=== PATIENT | male | born 1950 | race Caucasian/White ===

== ENCOUNTER 2017-04-14 05:55 | Emergency (ER) | payer OTHER, MEDICARE | END 2017-04-14 09:06 | disposition home or self-care (01) | LOC: M ED 05:55 | DX: S80.02XA Contusion of left knee, initial encounter (principal); W19.XXXA Unspecified fall, initial encounter; Y92.009 Unspecified place in unspecified non-institutional (private) residence as the place of occurrence of the external cause; K58.9 Irritable bowel syndrome, unspecified; F17.210 Nicotine dependence, cigarettes, uncomplicated; Z79.899 Other long term (current) drug therapy | CPT/HCPCS: 73564 ==

== ENCOUNTER 2017-05-07 11:59 | Emergency (ER) | payer OTHER ==
[2017-05-07] MEDS: MORPHINE 4 MG/ML 1ML VIAL (J2270) IV ×2 (12:53→15:02)
== END 2017-05-07 15:42 | disposition home or self-care (01) ==
LOC: M ED 11:59
DX: S52.571A Other intraarticular fracture of lower end of right radius, initial encounter for closed fracture (principal); S52.614A Nondisplaced fracture of right ulna styloid process, initial encounter for closed fracture; R22.31 Localized swelling, mass and lump, right upper limb; W19.XXXA Unspecified fall, initial encounter; Y92.098 Other place in other non-institutional residence as the place of occurrence of the external cause; F17.210 Nicotine dependence, cigarettes, uncomplicated; Z79.899 Other long term (current) drug therapy
CPT/HCPCS: J2270

== ENCOUNTER 2017-11-08 22:25 | Emergency (ER) | payer OTHER ==
[2017-11-08] MEDS: NORCO, ANEXSIA 5/325MG TABLET (HYDROcodone/ACETAMINOPHEN) PO ×2 (23:44)
== END 2017-11-09 00:06 | disposition home or self-care (01) ==
LOC: M ED 11-09 00:06
DX: S93.402A Sprain of unspecified ligament of left ankle, initial encounter (principal); X50.1XXA Overexertion from prolonged static or awkward postures, initial encounter; Y92.099 Unspecified place in other non-institutional residence as the place of occurrence of the external cause; Y93.9 Activity, unspecified; Y99.9 Unspecified external cause status; J44.9 Chronic obstructive pulmonary disease, unspecified; Z72.0 Tobacco use; Z79.899 Other long term (current) drug therapy
CPT/HCPCS: 73610

== ENCOUNTER → 2018-02-20 | Outpatient (REF) | payer OTHER ==
[~2018-02-20] MED LIST: /PANT40TA IV; ACET500T15 PO; AMBI10TA PO; ATIV1TAB7 PO; BACL10TA2 PO; CLON1TAB PO; CLON1TAB8 PO; EFFE75CA2 PO; FINA1TAB PO; FINA5TAB2 PO; IBUP-1022 PO; IBUP80TA PO; LAMI25TA PO; MIRT15TA3 PO; NAPR-50 PO; NAPR-885 PO; NAPR500T2 PO; NAPROXEN OR; OMEP40CA2 PO; OXYC-208 PO; OXYC-517 PO; PAXI10TA OR; PERC5TAB12 PO; PERC5TAB8 OR; PROAAER10 INH; SIMV40TA2 PO; TERA1CA PO; TERA1CAP3 PO; TOPI25TA2 OR; TRAM50TA2 OR; VENL75CA47 PO; WELLTAB40 PO; ZOCO80TA PO; ZOLO100T PO; ZOLP-189 PO
--- NOTE | 2018-02-20 20:41 | REP ---
Clinical: Preoperative assessment . Comparison: 01/17/2015 . Technique: PA and lateral. Findings: The mediastinum and cardiac silhouette are normal. The lung tolliver are clear and without acute consolidation, effusion, or pneumothorax. The skeletal structures are intact and normal. Impression: 1. No acute cardiopulmonary process. Electronically Signed by Carrington Watson MD 02/20/2018 08:32 P
== END ==
LOC: M RAD 12:07 → EDSTATUS 04-28 10:59
PROVIDERS: ATTEND Physician Assistant
DX: Z01.818 Encounter for other preprocedural examination (principal)

== ENCOUNTER → 2018-09-25 | Outpatient (REF) | payer OTHER ==
[~2018-09-25] MED LIST changes: -/PANT40TA IV; -NAPR-50 PO; +NAPR-837 PO; +PROT1TAB2 IV; -TERA1CA PO; +TERA1CAP46 PO
== END ==
LOC: M LAB REF 13:44
PROVIDERS: ATTEND Otolaryngology
DX: D14.0 Benign neoplasm of middle ear, nasal cavity and accessory sinuses (principal); J34.2 Deviated nasal septum; R09.81 Nasal congestion

== ENCOUNTER 2019-08-20 19:35 | Inpatient (IN) | payer OTHER ==
[~2019-08-20] VITALS: Ht 182.9 cm; Wt 94.4 kg
[~2019-08-20 19:35] MED LIST changes: -OMEP40CA2 PO; +OMEP40CA97 PO
[2019-08-20] MEDS ORDERED: ASPI81TA86 PO (19:45)
[2019-08-20 20:20] LABS: BASO % 0.3 % (0.0-1.0); EOS # 0.5 10^3/uL (0.0-0.5); EOS % 3.8 % (0.0-3.0); HEMATOCRIT 49.2 % (42.0-52.0); HEMOGLOBIN 15.7 g/dl (13.5-17.5); LYMPH # 2.1 10^3/uL (1.5-5.0); LYMPH % 15.9 % (24.0-44.0); MEAN CORPUSCULAR HGB CONC 31.9 g/dl (32.0-36.5); MEAN CORPUSCULAR VOLUME 93.9 fl (80.0-96.0); MONO # 0.7 10^3/uL (0.0-0.8); MONO % 5.3 % (0.0-5.0); NEUTROPHILS # 9.6 10^3/uL (1.5-8.5); NEUTROPHILS % 74.2 % (36.0-66.0); PLATELET COUNT, AUTOMATED 279 10^3/uL (150-450); RED BLOOD COUNT 5.24 10^6/uL (4.30-6.10); WHITE BLOOD COUNT 12.9 10^3/uL (4.0-10.0)
[2019-08-20 20:43] LABS: ALBUMIN 3.8 GM/DL (3.2-5.2); ALT/SGPT 19 U/L (12-78); BILIRUBIN,DIRECT 0.2 MG/DL (0.0-0.2); BILIRUBIN,TOTAL 0.4 MG/DL (0.2-1.0); BLOOD UREA NITROGEN 14 MG/DL (7-18); CALCIUM LEVEL 8.9 MG/DL (8.8-10.2); CARBON DIOXIDE LEVEL 31 MEQ/L (21-32); CHLORIDE LEVEL 102 MEQ/L (98-107); CREATININE FOR GFR 0.82 MG/DL (0.70-1.30); GLOMERULAR FILTRATION RATE > 60.0 (>42); GLUCOSE, FASTING 128 MG/DL (70-100); POTASSIUM SERUM 4.7 MEQ/L (3.5-5.1); SODIUM LEVEL 136 MEQ/L (136-145)
[2019-08-20] MEDS ORDERED: ISOVUE-370 76% 100ML VIAL As Ordered ONE (21:30)
[2019-08-20 21:41] LABS: NT-PRO BNP 50 PG/ML (<125)
[2019-08-20] MEDS ORDERED: dexameTHASONE 20MG/5ML VIAL (J1100 PER 1MG) IV ONE (22:00)
[2019-08-20] MEDS: COMBIVENT RESPIMAT 100-20MCG INHALER 4GM INH SCH ×3 (22:17→22:44)
--- NOTE | 2019-08-20 22:58 | REPVR ---
PROCEDURE INFORMATION: Exam: CT Angiography Chest With Contrast Exam date and time: 08/20/2019 10:37 PM Age: 69 years old Clinical indication: Shortness of breath TECHNIQUE: Imaging protocol: Computed tomographic angiography of the chest with intravenous contrast. 3D rendering: MIP and/or 3D reconstructed images were created by the technologist. Radiation optimization: All CT scans at this facility use at least one of these dose optimization techniques: automated exposure control; mA and/or kV adjustment per patient size (includes targeted exams where dose is matched to clinical indication); or iterative reconstruction. Contrast material: ISOVUE 370; Contrast volume: 75 ml; Contrast route: INTRAVENOUS (IV); COMPARISON: CR PORTABLE CHEST X-RAY 2019-08-20 19:55 FINDINGS: Pulmonary arteries: No filling defects in the pulmonary arteries to suggest pulmonary emboli. Aorta: Mild aortic atherosclerosis. Lungs: Dependent subsegmental pulmonary atelectasis. Mild bronchial wall thickening with some secretions, correlate for bronchiolitis and bronchitis. There is a pulmonary parenchymal calcification consistent with remote granulomatous organism exposure. Pleural space: Unremarkable. No pneumothorax. No pleural effusion. Heart: Unremarkable. No cardiomegaly. No pericardial effusion. Mediastinal space: Mild gastro-esophageal thickening. Question distal esophagitis. Lymph nodes: Unremarkable. No enlarged lymph nodes. Stomach and bowel: Mild colonic diverticulosis without evidence for acute diverticulitis. Bones/joints: Unremarkable. No acute fracture. Soft tissues: Unremarkable. IMPRESSION: 1. Mild bronchial wall thickening with some secretions, correlate for bronchiolitis and bronchitis. 2. No filling defects in the pulmonary arteries to suggest pulmonary emboli. 3. Mild gastro-esophageal thickening. Question distal esophagitis. Electronically signed by: Juan Pablo Maldonado On 08/20/2019 22:58:10 PM
[2019-08-21] VITALS (9 sets, daily range): BP systolic 128–146; BP diastolic 79–90; O2SAT 90–94
[2019-08-21] MEDS ORDERED: FLUT15.820 (00:08)
[2019-08-21] MEDS ORDERED: LISI-538 PO (00:08)
[2019-08-21] MEDS ORDERED: XALA0.007 OU (00:08)
[2019-08-21] MEDS ORDERED: SILD100T PO (00:08)
[2019-08-21] MEDS ORDERED: HEMO0.1O PR (00:08)
[2019-08-21] MEDS ORDERED: COSO1SOL3 OS (00:08)
[2019-08-21] MEDS ORDERED: ASPI-161 PO (00:08)
[2019-08-21] MEDS ORDERED: ATOR80TA59 PO (00:08)
[2019-08-21] MEDS ORDERED: ZOLP10TA2 PO (00:12)
[2019-08-21] MEDS ORDERED: GNPSOL OU (00:12)
[2019-08-21] MEDS ORDERED: DICL1GEL3 TOP (00:12)
[2019-08-21] MEDS ORDERED: CAPS0.022 TOP (00:12)
[2019-08-21] MEDS ORDERED: GUAI400T9 PO (00:12)
--- NOTE | 2019-08-21 00:12 | HPEPDOC ---
[facility] Medical History & Physical Date of Admission Aug 21, 2019 Date of Service: Aug 21, 2019 Other Provider Amado Castrejon [facility] Attending Physician: FANNY LA MD History and Physical TIME OF SERVICE: 12:15 AM CHIEF COMPLAINT:Shortness of breath HISTORY OF PRESENT ILLNESS: As is a 69-year-old gentleman presented with complaints of off and on shortness of breath for the last 3 weeks. Today the shortness of breath was much worse and he was "gasping" for air. He has a pulse oximeter at home and checked his O2 levels and noted that there were around 77%; he got scared and decided come to the hospital for evaluation. He denies having fevers, chills, chest pain, new back pain, sick contacts or traveling out of the state. He admits to having a cough productive of clear phlegm and feeling lightheaded. He also admitted to smoking more than usual because he's been under a lot of stress. Per discussion with Dr. Watkins despite receiving steroids and nebs, the patient's O2 dropped to 80% when he got up to walk. REVIEW OF SYSTEMS: 12 point review of systems negative except as listed in HPI PAST MEDICAL/ SURGICAL HISTORY: COPD without oxygen dependence BPH Chronic Back Pain Chronic HTN Dyslipidemia GERD Constipation Anxiety History of depression History of bleeding duodenal ulcer Unsteady gait He has a scooter SOCIAL HISTORY: He smokes a pack and half per day He doesn't drink alcohol Lives alone Has meals on Wheels FAMILY HISTORY: Denies family history of lung problems ALLERGIES: Please see below. HOME MEDICATIONS: Please see below. PHYSICAL EXAMINATION: Vital Signs Date Time Temp Pulse Resp B/P (MAP) Pulse Ox O2 Delivery O2 Flow Rate FiO2 08/20/19 20:18 97.6 83 20 130/80 (97) 100 Nasal Cannula 4.0 GEN: well nourished / well developed/ NAD INTEGUMENT: He doesn't have facial plethora HEENT:NCAT / He doesn't have pursed lip breathing / NC in place CVS: RRR/ no lower extremity edema LUNGS: He is able to speak full sentences without stopping to take a breath / He is not using accessory muscles / there is normal respiratory expansion/despite slightly diminished breath sounds, wheezing is audible NEURO: CN 2-12 are grossly intact / speech is not dysarthric PSYCH: alert and oriented / able to understand and follow all commands LABORATORY DATA: 08/20/19 20:03 Immature Granulocyte % (Auto) 0.5, Neutrophils (%) (Auto) 74.2H, Lymphocytes (%) (Auto) 15.9L, Monocytes (%) (Auto) 5.3H, Eosinophils (%) (Auto) 3.8H, Basophils (%) (Auto) 0.3, Neutrophils # (Auto) 9.6H, Lymphocytes # (Auto) 2.1, Monocytes # (Auto) 0.7, Eosinophils # (Auto) 0.5, Basophils # (Auto) 0.0, Nucleated Red Blood Cells % (auto) 0.0, Anion Gap 3L, Glomerular Filtration Rate > 60.0, Calcium Level 8.9, Total Bilirubin 0.4, Direct Bilirubin 0.2, Aspartate Amino Transf (AST/SGOT) 15, Alanine Aminotransferase (ALT/SGPT) 19, Alkaline Phosphatase 79, WO-Uzk-[id number]-Type Natriuretic Peptide 50, Total Protein 7.0, Albumin 3.8, Albumin/Globulin Ratio 1.2 08/20/19 20:06: POC Troponin I (Misc) 0.01 IMAGING: CTA chest "IMPRESSION: 1. Mild bronchial wall thickening with some secretions, correlate for bronchiolitis and bronchitis. 2. No filling defects in the pulmonary arteries to suggest pulmonary emboli. 3. Mild gastro-esophageal thickening. Question distal esophagitis. " MICROBIOLOGY: 08/20/19 Respiratory Virus Panel (PCR) (JOSE) - Final, Complete 08/20/19 Blood Culture, Received Pending ASSESSMENT: Mr. Patel is a 69-year-old with a history of COPD, BPH, dyslipidemia, GERD, constipation, and anxiety who is admitted for management of Acute COPD. PLAN: 1. Acute Eosinophilic ? COPD The trigger likely a combination of smoking and possibly allergens because he is c/o of feeling congested recently. CTA, respiratory panel, troponin were unremarkable. His WBC # is slightly elevated with eosinophilia He also has mild hypoxia and is currently using 4L of O2 Plan: admit to medical floor / supplemental O2 / continuous pulse oximetry / aspiration precautions / COPD diet / Dunebs Q6H, Albuterol Q4HP, Prednisone + PPI / Levofloxacin / Tessalon Pearls /he will need a referral to a Laundry Assistant for repeat PFTs and to adjust his meds / Pulmonary Rehab within 90 days of discharge which has been shown to reduce mortality 2. BPH - finasteride, terazosin 3. Dyslipidemia - atorvastatin 4. Chronic HTN - lisinopril 5. Chronic Back Pain - baclofen & capsaicin 6. Unsteady Gait / Debility - PT consult for early mobilization & to prevent deconditioning DVT PROPHYLAXIS: lovenox DISPOSITION: likely home after more than 2 midnight's stay Home Medications Scheduled Aspirin (Aspirin EC) 81 Mg Tablet.dr, 81 MG PO DAILY Atorvastatin Calcium (Atorvastatin Calcium) 80 Mg Tablet, 80 MG PO QHS Dorzolamide HCl/Timolol Maleat (Cosopt Eye Drops) 10 Ml Drops, 1 DROP OS QHS Finasteride (Finasteride) 5 Mg Tab, 5 MG PO QHS Latanoprost (Xalatan) 0.005% 2.5ML Drops, 1 DROP OU QHS Lisinopril (Lisinopril) 20 Mg Tablet, 10 MG PO QHS Prednisone (Prednisone) 10 Mg Tab.ds.pk, 10 MG PO DAILY Terazosin HCl (Terazosin HCl) 1 Mg Cap, 1 MG PO QHS Scheduled PRN Albuterol Sulfate (Proair Hfa) 108 Mcg/Act Aer, 2 PUFFS INH Q4H PRN for SHORTNESS OF BREATH Baclofen (Baclofen) 10 Mg Tab, 10 MG PO QID PRN for MUSCLE SPASMS Capsaicin (Capsaicin) 0.025% Cream..g., 1 DOSE TOP QID PRN for PAIN USES ON BACK NEEDED Diclofenac Sodium (Diclofenac Sodium) 1% 100GM Gel..gram., 2 GM TOP BID PRN for PAIN USES ON KNEES NEEDED Fluticasone Propionate (Fluticasone Propionate) 15.8 Ml [place].susp, 1 SPRAY NA BID PRN for NASAL CONGESTION Guaifenesin (Guaifenesin) 400 Mg Tablet, 400 MG PO BID PRN for CONGESTION Phenyleph/Mineral Oil/Petrolat (Hemorrhoidal Ointment) 57 Gm Oint.appl, 1 DOSE NM TID PRN for HEMORRHOIDS Polyvinyl Alcohol/Povidone (Artificial Tears Drops) 15 Ml Drops, 1 DROP OU TID PRN for DRY EYES Sildenafil Citrate (Sildenafil Citrate) 100 Mg Tablet, 100 MG PO ASDIRECTED PRN for ERECTILE DYSFUNCTION Zolpidem Tartrate (Zolpidem Tartrate) 10 Mg Tablet, 10 MG PO QHS PRN for SLEEP Allergies Coded Allergies: No Known Allergies (Verified , 05/07/17) A-FIB/CHADSVASC A-FIB History Current/History of A-Fib/PAF?: No Current PO Anticoag Therapy: No FANNY LA MD Aug 21, 2019 00:12
[2019-08-21] MEDS ORDERED: MOM 30ML SUSPENSION UDC PO PRN (00:15)
[2019-08-21] MEDS ORDERED: ALBUTEROL SULFATE 2.5 MG/0.5 ML INH NEB SOLN NEB PRN (00:15)
[2019-08-21] MEDS ORDERED: ACETAMINOPHEN TAB 650MG DOSE (2X325MG) PO PRN (00:15)
[2019-08-21] MEDS ORDERED: MAALOX 30 ML SUSP *UDC PO PRN (00:15)
--- NOTE | 2019-08-21 00:54 | ECGEPIP ---
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
[2019-08-21] MEDS ORDERED: CAPSAICIN 0.025% CR 60 GM TOP PRN (01:00)
[2019-08-21] MEDS ORDERED: BACLOFEN 10 MG TAB PO PRN (01:00)
[2019-08-21] MEDS: BENZONATATE 100 MG CAP PO SCH ×4 (01:24→20:13)
[2019-08-21] MEDS: IPRATROPIUM 0.5MG/ALBUTEROL 2.5MG INH SOL UD 3ML (DUONEB) NEB SCH ×4 (02:00→20:00)
[2019-08-21] MEDS: LevoFLOXacin 750 MG TABLET PO SCH (06:04)
--- NOTE | 2019-08-21 08:08 | REP ---
Clinical: Cough and dyspnea . Comparison: 02/20/2018 . Findings: The mediastinum and cardiac silhouette are stable and within normal limits for portable technique. The lung tolliver demonstrate diffuse chronic interstitial changes without acute consolidation, effusion, or pneumothorax. Skeletal structures are intact. Impression: No acute cardiopulmonary process appreciated. Electronically Signed by Carrington Watson MD 08/21/2019 07:59 A
[2019-08-21] MEDS: PANTOPRAZOLE 40MG TAB (PROTONIX) PO SCH (09:10)
[2019-08-21] MEDS: predniSONE 20 MG TAB PO SCH (09:10)
[2019-08-21] MEDS: ASPIRIN 81 MG ENTERIC TAB PO SCH (09:10)
[2019-08-21] MEDS: ENOXAPARIN 40MG/0.4ML SYRINGE (J1650 PER 10MG) SC SCH (09:10)
--- NOTE | 2019-08-21 16:44 | IPNPDOC ---
Subjective Date Seen The patient was seen on 08/21/19. Subjective Chief Complaint/HPI Patient reports that he is feeling better, however he is significantly concerned about the fact that he requires oxygen supplementation. He is wondering whether he will need this for life. I reassured him that at this point I expect him to make a recovery sufficiently where he will not require oxygen in the home upon discharge. We did have a good talk about smoking cessation, hopefully this hospitalization will be sufficient to convince him to stop smoking. Otherwise, the remainder of his review of systems is negative. Objective Physical Examination General Exam: Positive: Alert, No Acute Distress ENT Exam: Positive: Atraumatic, Mucous membr. moist/pink, Pharynx Normal Neck Exam: Positive: Supple; Negative: JVD, thyromegaly Chest Exam: Positive: Wheezing (throughout) Heart Exam: Positive: Rate Normal, Regular Rhythm, Normal S1, Normal S2; Negative: Murmurs, Rubs Abdomen Exam: Positive: Normal bowel sounds, Soft; Negative: Tenderness, Hepatospenomegaly Psych Exam: Positive: Mental status NL, Mood NL, Oriented x 3 Assessment /Plan Problems (1) COPD with acute exacerbation Status: Acute (2) Hypoxia Status: Acute (3) BPH (benign prostatic hyperplasia) Status: Chronic (4) Dyslipidemia Status: Chronic (5) Hypertension Status: Chronic (6) Chronic back pain Status: Chronic (7) Unsteady gait Status: Acute Plan/VTE VTE Prophylaxis Ordered?: Yes (Lovenox) Plan The patient's condition is improving, however he does continue to require supplemental oxygen. He is not on oxygen at home. As a matter fact this is his first hospitalization for an acute exacerbation of COPD. He will likely require pulmonary rehabilitation after discharge. Additionally, he is not on any inhaled corticosteroid, therefore he has been instructed to speak with his PCP about this, perhaps referral to electric organ inspector and repairer for repeat PFTs would be indicated as well. Continue with current regimen of DuoNebs, steroids, levofloxacin, will titrate oxygen requirements as needed. VS, I&O, 24H, Fishbone Vital Signs/I&O Vital Signs Date Time Temp Pulse Resp B/P (MAP) Pulse Ox O2 Delivery O2 Flow Rate FiO2 08/21/19 14:00 97.9 96 18 143/90 (107) 90 Nasal Cannula 1.0 I&O- Last 24 Hours up to 6 AM 08/21/19 06:00 Intake Total 0 ml Output Total 0 ml Balance 0 ml Laboratory Data 24H LABS Laboratory Tests 2 08/20/19 20:03: Immature Granulocyte % (Auto) 0.5, Neutrophils (%) (Auto) 74.2H, Lymphocytes (%) (Auto) 15.9L, Monocytes (%) (Auto) 5.3H, Eosinophils (%) (Auto) 3.8H, Basophils (%) (Auto) 0.3, Neutrophils # (Auto) 9.6H, Lymphocytes # (Auto) 2.1, Monocytes # (Auto) 0.7, Eosinophils # (Auto) 0.5, Basophils # (Auto) 0.0, Nucleated Red Blood Cells % (auto) 0.0, Anion Gap 3L, Glomerular Filtration Rate > 60.0, Calcium Level 8.9, Total Bilirubin 0.4, Direct Bilirubin 0.2, Aspartate Amino Transf (AST/SGOT) 15, Alanine Aminotransferase (ALT/SGPT) 19, Alkaline Phosphatase 79, ZA-[id number]-Type Natriuretic Peptide 50, Total Protein 7.0, Albumin 3.8, Albumin/Globulin Ratio 1.2 08/20/19 20:06: POC Troponin I (Misc) 0.01 CBC/BMP Laboratory Tests 08/20/19 20:03 Microbiology Microbiology 08/21/19 Blood Culture, Received Pending 08/20/19 Respiratory Virus Panel (PCR) (JOSE) - Final, Complete 08/20/19 Blood Culture, Received Pending AYAKA MELGAR DO Aug 21, 2019 16:44
[2019-08-21] MEDS: guaiFENesin ER 600 MG TAB PO SCH (20:13)
[2019-08-21] MEDS ORDERED: FINASTERIDE 5 MG TAB PO SCH (21:00)
[2019-08-21] MEDS ORDERED: ATORVASTATIN 20 MG TAB PO SCH (21:00)
[2019-08-21] MEDS ORDERED: zolPIDEM TARTRATE 5 MG TAB PO SCH (21:00)
[2019-08-21] MEDS ORDERED: TERAZOSIN 1 MG CAP PO SCH (21:00)
[2019-08-21] MEDS ORDERED: LATANOPROST 0.005% OPHTH SOLN 2.5 ML OU SCH (21:00)
[2019-08-21] MEDS ORDERED: COSOPT OCUMETER PLUS 10ML (DORZOLAMIDE/TIMOLOL) OS SCH (21:00)
[2019-08-21] MEDS ORDERED: lisinopriL 20 MG TAB PO SCH (21:00)
[2019-08-22] MEDS: IPRATROPIUM 0.5MG/ALBUTEROL 2.5MG INH SOL UD 3ML (DUONEB) NEB SCH ×2 (01:19→07:18)
[2019-08-22] MEDS: LevoFLOXacin 750 MG TABLET PO SCH (05:38)
[2019-08-22 06:00] VITALS: BP 131/86
[2019-08-22 06:53] LABS: HEMATOCRIT 46.5 % (42.0-52.0); HEMOGLOBIN 15.4 g/dl (13.5-17.5); MEAN CORPUSCULAR HGB CONC 33.1 g/dl (32.0-36.5); MEAN CORPUSCULAR VOLUME 90.6 fl (80.0-96.0); PLATELET COUNT, AUTOMATED 281 10^3/uL (150-450); RED BLOOD COUNT 5.13 10^6/uL (4.30-6.10); WHITE BLOOD COUNT 13.9 10^3/uL (4.0-10.0)
[2019-08-22 07:16] LABS: BLOOD UREA NITROGEN 13 MG/DL (7-18); CALCIUM LEVEL 8.6 MG/DL (8.8-10.2); CARBON DIOXIDE LEVEL 29 MEQ/L (21-32); CHLORIDE LEVEL 105 MEQ/L (98-107); CREATININE FOR GFR 0.63 MG/DL (0.70-1.30); GLOMERULAR FILTRATION RATE > 60.0 (>42); GLUCOSE, FASTING 105 MG/DL (70-100); MAGNESIUM LEVEL 2.2 MG/DL (1.8-2.4); POTASSIUM SERUM 3.8 MEQ/L (3.5-5.1); SODIUM LEVEL 137 MEQ/L (136-145)
[2019-08-22] MEDS: ASPIRIN 81 MG ENTERIC TAB PO SCH (08:26)
[2019-08-22] MEDS: ENOXAPARIN 40MG/0.4ML SYRINGE (J1650 PER 10MG) SC SCH (08:26)
[2019-08-22] MEDS: guaiFENesin ER 600 MG TAB PO SCH (08:26)
[2019-08-22] MEDS: predniSONE 20 MG TAB PO SCH (08:26)
[2019-08-22] MEDS: PANTOPRAZOLE 40MG TAB (PROTONIX) PO SCH (08:26)
[2019-08-22] MEDS: BENZONATATE 100 MG CAP PO SCH (08:26)
[2019-08-22 09:00] VITALS: O2SAT 93
[2019-08-22 10:04] VITALS: BP 121/79
[2019-08-22] MEDS ORDERED: PRED10PA2 PO (10:34)
--- NOTE | 2019-08-22 18:57 | DS.PDOC ---
Discharge Summary General Date of Admission Aug 21, 2019 at 00:05 Date of Discharge 08/22/2019 Discharge Summary PRIMARY CARE PHYSICIAN: [facility] ATTENDING AT TIME OF DISCHARGE: Dr. Ayaka Melgar, DO DISCHARGE DIAGNOS(E)S: Acute respiratory failure with hypoxia Acute exacerbation of COPD BPH Dyslipidemia Hypertension Chronic back pain Unsteady gait HPI & HOSPITAL COURSE: The patient was brought to the ED for complaints of shortness of breath. It was determined that he had acute respiratory failure with hypoxia due to an acute exacerbation of COPD. Apparently this is his first hospitalization. He was then treated with empiric antibiotics, oxygen, steroids, scheduled and PRN nebulizers. He has shown remarkable improvement everyday and this morning he was up walking around the halls without any oxygen. He is feeling quite well, and certainly appears stable for discharge at this time. PHYSICAL EXAMINATION ON DISCHARGE: GENERAL: Awake, alert, oriented 3. CARDIOVASCULAR EXAMINATION: Regular rate and rhythm, with no rubs, gallops, or murmur. RESPIRATORY EXAMINATION: Very minimal scattered expiratory wheezes. Predominantly clear lung sounds. ABDOMINAL EXAMINATION: Soft, nontender, nondistended. Bowel sounds present. EXTREMITIES: No clubbing or edema noted. 2+ pulses in the radial bilaterally. DISPOSITION: Home DISCHARGE INSTRUCTIONS: Follow-up with primary care provider within the next 7-14 days. Diet as tolerated. Activity as tolerated, he does walk with a cane due to his unsteady gait. If symptoms return, or if you experience worsening of your symptoms, please call your doctor or return to the emergency department. DISCHARGE MEDICATIONS: Continue taking from home: No changes in his home medications New Medications: 5 day course of prednisone 10 mg daily ITEMS THAT NEED OUTPATIENT FOLLOWUP: Recommend repeating pulmonary function tests Likely would benefit from being started on inhaled corticosteroids Pulmonary rehabilitation within 90 days of discharge has been shown to reduce mortality Vital Signs/I&Os Vital Signs Date Time Temp Pulse Resp B/P (MAP) Pulse Ox O2 Delivery O2 Flow Rate FiO2 08/22/19 10:04 98.5 79 19 121/79 (93) 93 Room Air 08/21/19 18:00 1.0 l I&O- Last 24 Hours up to 6 AM 08/22/19 05:59 Intake Total 860 ml Output Total 1630 ml Balance -770 ml Laboratory Data Labs 24H Laboratory Tests 2 08/22/19 06:32: Nucleated Red Blood Cells % (auto) 0.0, Anion Gap 3L, Glomerular Filtration Rate > 60.0, Calcium Level 8.6L, Magnesium Level 2.2 CBC/BMP Laboratory Tests 08/22/19 06:32 Microbiology Microbiology 08/21/19 Blood Culture - Preliminary, Resulted No growth after 24 hours . All specim... 08/20/19 Respiratory Virus Panel (PCR) (JOSE) - Final, Complete 08/20/19 Blood Culture - Preliminary, Resulted No growth after 24 hours . All specim... Discharge Medications Scheduled Aspirin (Aspirin EC) 81 Mg Tablet.dr, 81 MG PO DAILY, (Reported) Atorvastatin Calcium (Atorvastatin Calcium) 80 Mg Tablet, 80 MG PO QHS, (Reported) Dorzolamide HCl/Timolol Maleat (Cosopt Eye Drops) 10 Ml Drops, 1 DROP OS QHS, (Reported) Finasteride (Finasteride) 5 Mg Tab, 5 MG PO QHS, (Reported) Latanoprost (Xalatan) 0.005% 2.5ML Drops, 1 DROP OU QHS, (Reported) Lisinopril (Lisinopril) 20 Mg Tablet, 10 MG PO QHS, (Reported) Prednisone (Prednisone) 10 Mg Tab.ds.pk, 10 MG PO DAILY Terazosin HCl (Terazosin HCl) 1 Mg Cap, 1 MG PO QHS, (Reported) Scheduled PRN Albuterol Sulfate (Proair Hfa) 108 Mcg/Act Aer, 2 PUFFS INH Q4H PRN for SHORTNESS OF BREATH, (Reported) Baclofen (Baclofen) 10 Mg Tab, 10 MG PO QID PRN for MUSCLE SPASMS, (Reported) Capsaicin (Capsaicin) 0.025% Cream..g., 1 DOSE TOP QID PRN for PAIN, (Reported) USES ON BACK NEEDED Diclofenac Sodium (Diclofenac Sodium) 1% 100GM Gel..gram., 2 GM TOP BID PRN for PAIN, (Reported) USES ON KNEES NEEDED Fluticasone Propionate (Fluticasone Propionate) 15.8 Ml [place].susp, 1 SPRAY NA BID PRN for NASAL CONGESTION, (Reported) Guaifenesin (Guaifenesin) 400 Mg Tablet, 400 MG PO BID PRN for CONGESTION, (Reported) Phenyleph/Mineral Oil/Petrolat (Hemorrhoidal Ointment) 57 Gm Oint.appl, 1 DOSE [place] TID PRN for HEMORRHOIDS, (Reported) Polyvinyl Alcohol/Povidone (Artificial Tears Drops) 15 Ml Drops, 1 DROP OU TID P RN for DRY EYES, (Reported) Sildenafil Citrate (Sildenafil Citrate) 100 Mg Tablet, 100 MG PO ASDIRECTED PRN for ERECTILE DYSFUNCTION, (Reported) Zolpidem Tartrate (Zolpidem Tartrate) 10 Mg Tablet, 10 MG PO QHS PRN for SLEEP, (Reported) Allergies Coded Allergies: No Known Allergies (Verified , 05/07/17) AYAKA MELGAR DO Aug 22, 2019 18:57
== END 2019-08-22 12:02 | disposition home or self-care (01) | DRG 189 ==
LOC: M ED 19:35 → M ED INP 08-21 00:05 → ENRESERV 08-21 00:27 → M MS5PR 08-21 01:15
PROVIDERS: ADMIT Internal Medicine; ATTEND Neuromusculoskeletal Medicine & OMM
DX: J96.01 Acute respiratory failure with hypoxia (principal); J44.1 Chronic obstructive pulmonary disease with (acute) exacerbation; N40.0 Benign prostatic hyperplasia without lower urinary tract symptoms; M54.9 Dorsalgia, unspecified; I10 Essential (primary) hypertension; E78.5 Hyperlipidemia, unspecified; K21.9 Gastro-esophageal reflux disease without esophagitis; F32.9 Major depressive disorder, single episode, unspecified; K59.00 Constipation, unspecified; F41.9 Anxiety disorder, unspecified; R26.81 Unsteadiness on feet; F17.200 Nicotine dependence, unspecified, uncomplicated; Z87.11 Personal history of peptic ulcer disease; Z79.82 Long term (current) use of aspirin; Z79.899 Other long term (current) drug therapy; Z11.59 Encounter for screening for other viral diseases

== ENCOUNTER → 2020-07-14 | Outpatient (CLI) | payer OTHER ==
[~2020-07-14] MED LIST changes: +ASPI-161 PO; +ASPI81TA86 PO; +ATOR80TA59 PO; +CAPS0.022 TOP; +COSO1SOL3 OS; +DICL1GEL3 TOP; +FLUT15.820; +GNPSOL OU; +GUAI400T9 PO; +HEMO0.1O PR; +LISI20TA33 PO; +PRED10PA2 PO; +SILD100T PO; +XALA0.007 OU; +ZOLP10TA2 PO
--- NOTE | 2020-07-19 09:21 | ECHO ---
ECHOCARDIOGRAM DATE OF PROCEDURE: 07/14/2020 Age: 69 Gender: Male Height: 180 cm Weight: 93 kg REFERRING PHYSICIAN: Yessenia Martinez NP INDICATION: Dyspnea, unspecified. MEASUREMENTS: 2D Measurements: Inferior vena cava 1.6 cm (more than 50% respiratory variation) Doppler Measurements: LVOT velocity 76.4 cm/s Mitral E velocity 40.0 cm/s Mitral A velocity 63.6 cm/s Mitral deceleration time 254 msec Trace tricuspid regurgitation MITRAL ANNULAR TISSUE DOPPLER E prime septal 5.5 cm/s, E prime lateral 5.8 cm/s DESCRIPTION: Rhythm was sinus. This was a technically difficult echocardiogram. No pericardial effusion. This was a 2D, M-mode, color flow Doppler, and pulsed wave Doppler examination including mitral annular tissue Doppler. CONCLUSIONS: 1. Normal left ventricle size and wall thickness by visual assessment. No regional wall abnormalities of the left ventricle observed. Normal LV systolic function. LVEF 65% by visual estimate. Grade 1 LV diastolic dysfunction. 2. Technically difficult echocardiogram. 3. Normal right ventricle size and systolic function. Normal CVP. Pulmonary artery systolic pressure could not be determined on this study. 4. Mild aortic valve sclerosis of a 3-cuspid aortic valve. No aortic regurgitation. 5. Lipomatous hypertrophy of the interatrial septum. Amado Castrejon PA-C
== END ==
LOC: M CARPUL 09:26
PROVIDERS: ATTEND Physician Assistant Medical
DX: I50.30 Unspecified diastolic (congestive) heart failure (principal); I35.8 Other nonrheumatic aortic valve disorders; I51.89 Other ill-defined heart diseases

== ENCOUNTER → 2020-08-03 | Outpatient (CLI) | payer OTHER ==
--- NOTE | 2020-08-03 09:35 | REP ---
INDICATION: CHRONIC HEPATITIS, UNSPECIFIED COMPARISON: None TECHNIQUE: Real time B-mode saldivar scale ultrasound examination using curved array transducer. FINDINGS: Liver demonstrates coarsened echotexture without focal hepatic lesion identified. The spleen is normal in size and echogenicity. Visualized pancreas is unremarkable.. Gallbladder is normal without gallstones, wall thickening, or pericholecystic fluid. No biliary ductal dilatation is appreciated and the common bile duct measures 7.0 mm in diameter. The bilateral kidneys are normal in reniform shape without hydronephrosis or obvious abnormality. Right kidney measures 11.3 x 5.8 x 4.8 cm. Left kidney measures 12.0 x 5.4 x 5.5 cm. Visualized abdominal aorta measures 2.3 cm maximal diameter. No ascites noted. IMPRESSION: Coarsened hepatic echotexture consistent with hepatitis. No focal hepatic lesions are identified. <Electronically signed by Carrington Watson > 08/03/20 0932
== END ==
LOC: M RAD 08:45
PROVIDERS: ATTEND Nurse Practitioner Primary Care
DX: K73.9 Chronic hepatitis, unspecified (principal)

== ENCOUNTER → 2020-08-11 | Outpatient (CLI) | payer OTHER ==
[~2020-08-11] MED LIST changes: +OMEP40CA4 PO; -OMEP40CA97 PO
[2020-08-11 14:14] LABS: HEMATOCRIT 51.8 % (42.0-52.0); HEMOGLOBIN 16.6 g/dl (13.5-17.5); MEAN CORPUSCULAR HEMOGLOBIN 29.5 pg (27.0-33.0); MEAN CORPUSCULAR VOLUME 92.2 fl (80.0-96.0); PLATELET COUNT, AUTOMATED 291 10^3/uL (150-450); RED BLOOD COUNT 5.62 10^6/uL (4.30-6.10); WHITE BLOOD COUNT 12.3 10^3/uL (4.0-10.0)
[2020-08-11 14:14] LABS: APPEARANCE, URINE CLEAR (CLEAR); BACTERIA, URINE AUTO NEGATIVE (NEGATIVE); BILIRUBIN, URINE AUTO NEGATIVE (NEGATIVE); BLOOD, URINE BLOOD NEGATIVE (NEGATIVE); COLOR, URINE YELLOW (YELLOW); GLUCOSE, URINE (UA) AUTO NEGATIVE (NEGATIVE); KETONE, URINE AUTO NEGATIVE (NEGATIVE); LEUKOCYTE ESTERASE, URINE AUTO NEGATIVE (NEGATIVE); NITRITE, URINE AUTO NEGATIVE (NEGATIVE); PROTEIN, URINE AUTO NEGATIVE (NEGATIVE); RBC, URINE AUTO 0 /HPF (0-3); SPECIFIC GRAVITY URINE AUTO 1.018 (1.002-1.035); SQUAMOUS EPITHELIAL CELL UR AU 0 /HPF (0-6); UROBILINOGEN, URINE AUTO 0.2 mg/dL (0.0-2.0); WBC, URINE AUTO 1 /HPF (0-3)
[2020-08-11 14:27] LABS: INR 0.93; PARTIAL THROMBOPLASTIN TIME 27.5 SECONDS (24.2-38.5); PROTHROMBIN TIME 12.7 SECONDS (12.5-14.3)
[2020-08-11 14:41] LABS: ALBUMIN 3.5 GM/DL (3.2-5.2); ALT/SGPT 22 U/L (12-78); BILIRUBIN,TOTAL 0.3 MG/DL (0.2-1.0); BLOOD UREA NITROGEN 16 MG/DL (7-18); CALCIUM LEVEL 9.1 MG/DL (8.8-10.2); CARBON DIOXIDE LEVEL 33 MEQ/L (21-32); CHLORIDE LEVEL 107 MEQ/L (98-107); GLOMERULAR FILTRATION RATE > 60.0 (>42); GLUCOSE, FASTING 94 MG/DL (70-100); POTASSIUM SERUM 4.3 MEQ/L (3.5-5.1); SODIUM LEVEL 141 MEQ/L (136-145); TOTAL PROTEIN 6.5 GM/DL (6.4-8.2)
== END ==
LOC: M LAB 13:33
PROVIDERS: ATTEND Nurse Practitioner Primary Care
DX: I10 Essential (primary) hypertension (principal); J44.9 Chronic obstructive pulmonary disease, unspecified; E78.5 Hyperlipidemia, unspecified

== ENCOUNTER → 2020-10-28 | Outpatient (CLI) | payer OTHER ==
--- NOTE | 2020-10-28 12:09 | REP ---
INDICATION: NICOTINE DEPENDENCE. COMPARISON: 09/07/2019 CT angio chest TECHNIQUE: Axial noncontrast images from the thoracic inlet to the upper abdomen using low-dose lung screening technique (LDCT). As per the protocol only lung window images were sent to the read station for interpretation FINDINGS: There is a stable asymmetric inferior lingular density. No new abnormal nodules, masses, or opacities have developed. There is mild cylindrical bronchiectasis status quo. Grossly, the mediastinum and pulmonary noé are unchanged. Grossly, the imaged upper abdomen and imaged osseous structures are unchanged. IMPRESSION: Stable lung rads category 2 low-dose screening CT examination of the lungs. <Electronically signed by Ezio Paerce > 10/28/20 [id number]
== END ==
LOC: M RAD 10:53
PROVIDERS: ATTEND Nurse Practitioner Adult Health
DX: Z12.2 Encounter for screening for malignant neoplasm of respiratory organs (principal); F17.218 Nicotine dependence, cigarettes, with other nicotine-induced disorders; J47.9 Bronchiectasis, uncomplicated

== ENCOUNTER 2020-11-26 19:42 | Emergency (ER) | payer OTHER ==
[~2020-11-26] VITALS: Ht 182.9 cm; Wt 88.2 kg
[2020-11-26 19:43] VITALS: BP 131/80
[2020-11-26] MEDS ORDERED: METF-839 PO (20:30)
== END 2020-11-26 20:18 | disposition left against medical advice (07) ==
LOC: M ED 19:42
DX: Z53.21 Procedure and treatment not carried out due to patient leaving prior to being seen by health care provider (principal)

== ENCOUNTER 2021-11-19 14:18 | Emergency (ER) | payer OTHER ==
[~2021-11-19 14:18] MED LIST changes: +METF-839 PO
[2021-11-19] MEDS ORDERED: [UNRECOGNIZED DRUG - REMARK] (14:43)
[2021-11-19 15:30] LABS: BASO # 0.1 10^3/uL (0.0-0.2); BASO % 0.5 % (0.0-1.0); EOS # 0.3 10^3/uL (0.0-0.5); EOS % 3.2 % (0.0-3.0); HEMATOCRIT 50.7 % (42.0-52.0); HEMOGLOBIN 16.6 g/dl (13.5-17.5); LYMPH % 20.7 % (24.0-44.0); MEAN CORPUSCULAR HEMOGLOBIN 30.1 pg (27.0-33.0); MEAN CORPUSCULAR HGB CONC 32.7 g/dl (32.0-36.5); MEAN CORPUSCULAR VOLUME 91.8 fl (80.0-96.0); MONO # 0.6 10^3/uL (0.0-0.8); MONO % 5.9 % (2.0-8.0); NEUTROPHILS # 6.7 10^3/uL (1.5-8.5); NEUTROPHILS % 69.3 % (36.0-66.0); PLATELET COUNT, AUTOMATED 242 10^3/uL (150-450); RED BLOOD COUNT 5.52 10^6/uL (4.30-6.10); WHITE BLOOD COUNT 9.7 10^3/uL (4.0-10.0)
[2021-11-19 16:10] LABS: BLOOD UREA NITROGEN 13 MG/DL (7-18); CALCIUM LEVEL 9.1 MG/DL (8.8-10.2); CARBON DIOXIDE LEVEL 34 MEQ/L (21-32); CHLORIDE LEVEL 98 MEQ/L (98-107); GLOMERULAR FILTRATION RATE > 60.0 (>42); GLUCOSE, FASTING 116 MG/DL (70-100); POTASSIUM SERUM 4.2 MEQ/L (3.5-5.1); SODIUM LEVEL 135 MEQ/L (136-145)
[2021-11-19 16:15] VITALS: BP 114/72
[2021-11-19] MEDS ORDERED: NYST1POW9 TOP (16:38)
== END 2021-11-19 16:47 | disposition home or self-care (01) ==
LOC: M ED 14:18
DX: B35.3 Tinea pedis (principal); R22.41 Localized swelling, mass and lump, right lower limb; I10 Essential (primary) hypertension; E78.5 Hyperlipidemia, unspecified; J44.9 Chronic obstructive pulmonary disease, unspecified; K21.9 Gastro-esophageal reflux disease without esophagitis; K58.9 Irritable bowel syndrome, unspecified; F31.9 Bipolar disorder, unspecified; F17.200 Nicotine dependence, unspecified, uncomplicated

== ENCOUNTER → 2022-02-20 | Outpatient (CLI) | payer OTHER ==
[~2022-02-20] MED LIST changes: +NYST1POW9 TOP; +[UNRECOGNIZED DRUG - REMARK]
== END ==
LOC: M RAD 10:43
PROVIDERS: ATTEND Nurse Practitioner Adult Health
DX: Z12.2 Encounter for screening for malignant neoplasm of respiratory organs (principal); F17.218 Nicotine dependence, cigarettes, with other nicotine-induced disorders

== ENCOUNTER → 2022-06-15 | Outpatient (CLI) | payer OTHER ==
[~2022-06-15] MED LIST changes: -COSO1SOL3 OS; +DORZ10DR10 OS
== END ==
LOC: M EKG 14:52
PROVIDERS: ATTEND Ophthalmology
DX: T85.79XA Infection and inflammatory reaction due to other internal prosthetic devices, implants and grafts, initial encounter (principal)

== ENCOUNTER → 2022-06-16 | Outpatient (REF) | payer OTHER ==
[2022-06-16 09:51] LABS: BLOOD UREA NITROGEN 18 MG/DL (9-23); CALCIUM LEVEL 8.7 MG/DL (8.3-10.6); CARBON DIOXIDE LEVEL 34 MMOL/L (20-31); CHLORIDE LEVEL 99 MMOL/L (98-107); CREATININE FOR GFR 0.77 MG/DL (0.70-1.30); GLOMERULAR FILTRATION RATE > 60.0 (>42); GLUCOSE, FASTING 89 MG/DL (74-106); POTASSIUM SERUM 4.5 MMOL/L (3.5-5.1); SODIUM LEVEL 136 MMOL/L (136-145)
== END ==
LOC: M LAB REF 08:55
PROVIDERS: ATTEND Ophthalmology
DX: T85.79XA Infection and inflammatory reaction due to other internal prosthetic devices, implants and grafts, initial encounter (principal); E11.9 Type 2 diabetes mellitus without complications; I50.9 Heart failure, unspecified; Z79.899 Other long term (current) drug therapy

== ENCOUNTER 2022-09-12 11:11 | Inpatient (IN) | payer MEDICARE, OTHER ==
[~2022-09-12] VITALS: Ht 182.9 cm; Wt 86.7 kg
[2022-09-12 11:51] LABS: BASO # 0.1 10^3/uL (0.0-0.2); BASO % 0.3 % (0.0-1.0); HEMATOCRIT 61.7 % (42.0-52.0); LYMPH # 1.8 10^3/uL (1.5-5.0); LYMPH % 9.5 % (24.0-44.0); MEAN CORPUSCULAR HEMOGLOBIN 29.9 pg (27.0-33.0); MEAN CORPUSCULAR HGB CONC 32.4 g/dl (32.0-36.5); MEAN CORPUSCULAR VOLUME 92.4 fl (80.0-96.0); MONO # 1.3 10^3/uL (0.0-0.8); NEUTROPHILS # 15.6 10^3/uL (1.5-8.5); NEUTROPHILS % 82.3 % (36.0-66.0); PLATELET COUNT, AUTOMATED 230 10^3/uL (150-450); RED BLOOD COUNT 6.68 10^6/uL (4.30-6.10)
[2022-09-12] MEDS ORDERED: NS 1,470 ML in IV 1 EA IV ONE (12:20)
[2022-09-12] MEDS: METOPROLOL 5 MG/5 ML VIAL IV SCH ×3 (12:28→13:09)
[2022-09-12 14:22] LABS: CK-MB VALUE MASS 6.9 NG/ML (<3.6)
[2022-09-12 14:25] LABS: ALBUMIN 2.5 G/DL (3.2-5.2); ALKALINE PHOSPHATASE 63 U/L (46-116); ALT/SGPT 29 U/L (7.0-40); AST/SGOT 55 U/L (<34); BILIRUBIN,DIRECT 0.4 MG/DL (<0.4); BILIRUBIN,TOTAL 1.3 MG/DL (0.3-1.2); BLOOD UREA NITROGEN 52 MG/DL (9-23); CALCIUM LEVEL 7.7 MG/DL (8.3-10.6); CARBON DIOXIDE LEVEL 30 MMOL/L (20-31); CHLORIDE LEVEL 114 MMOL/L (98-107); CPK CREATINE PHOSPHOKINASE 1035 U/L (46-171); CREATININE FOR GFR 0.75 MG/DL (0.70-1.30); GLOMERULAR FILTRATION RATE > 60.0 (>42); GLUCOSE, FASTING 126 MG/DL (74-106); MB/CK RELATIVE INDEX 0.66 (< OR =4); POTASSIUM SERUM 3.6 MMOL/L (3.5-5.1); SODIUM LEVEL 151 MMOL/L (136-145); TOTAL PROTEIN 5.2 G/DL (5.7-8.2)
[2022-09-12 14:26] LABS: THYROID STIMULATING HORMONE 0.309 uIU/ML (0.55-4.78)
[2022-09-12 14:31] LABS: PROCALCITONIN <0.04 ng/ml
[2022-09-12] MEDS ORDERED: METOPROLOL TART 50 MG TAB PO ONE ×2 (14:35→17:50)
[2022-09-12] MEDS ORDERED: DIGOXIN INJ 0.5 MG/2 ML AMP IV ONE ×2 (14:35→16:10)
[2022-09-12] MEDS ORDERED: D5W/0.45% SODIUM CHLORIDE 1,000 ML IV SCH (16:15)
[2022-09-12 16:17] LABS: CK-MB VALUE MASS 8.9 NG/ML (<3.6)
[2022-09-12 16:46] LABS: MB/CK RELATIVE INDEX 0.68 (< OR =4)
[2022-09-12] MEDS ORDERED: APIXABAN 5 MG TAB (ELIQUIS) PO ONE (17:45)
[2022-09-12] MEDS ORDERED: cefTRIAXone SOD 2 GM in D5W MINI-BAG PLUS 50 ML IV ONE (17:45)
[2022-09-12] MEDS ORDERED: AMIODARONE HCL 150 MG in IV 1 EA IV STA ×2 (17:46→18:27)
[2022-09-12 19:12] LABS: AMPHETAMINES LEVEL URINE NEGATIVE (NEGATIVE); BARBITURATES URINE NEGATIVE (NEGATIVE); BENZODIAZEPINES URINE NEGATIVE (NEGATIVE); CANNABINOIDS URINE NEGATIVE (NEGATIVE); COCAINE METABOLITE URINE NEGATIVE (NEGATIVE); METHADONE URINE NEGATIVE (NEGATIVE); OPIATES URINE NEGATIVE (NEGATIVE); PHENCYCLIDINE URINE NEGATIVE (NEGATIVE)
[2022-09-12 19:34] LABS: INR 1.24; PROTHROMBIN TIME 15.9 SECONDS (12.5-14.5)
[2022-09-12 19:35] LABS: PARTIAL THROMBOPLASTIN TIME 27.1 SECONDS (24.8-34.2)
[2022-09-12 22:19] LABS: BASO % 0.2 % (0.0-1.0); EOS % 0.1 % (0.0-3.0); HEMOGLOBIN 18.4 g/dl (13.5-17.5); LYMPH # 2.1 10^3/uL (1.5-5.0); LYMPH % 11.7 % (24.0-44.0); MEAN CORPUSCULAR HEMOGLOBIN 30.4 pg (27.0-33.0); MEAN CORPUSCULAR HGB CONC 32.3 g/dl (32.0-36.5); MEAN CORPUSCULAR VOLUME 94.1 fl (80.0-96.0); MONO # 1.4 10^3/uL (0.0-0.8); MONO % 7.5 % (2.0-8.0); NEUTROPHILS # 14.5 10^3/uL (1.5-8.5); NEUTROPHILS % 79.8 % (36.0-66.0); PLATELET COUNT, AUTOMATED 166 10^3/uL (150-450); RED BLOOD COUNT 6.06 10^6/uL (4.30-6.10); WHITE BLOOD COUNT 18.1 10^3/uL (4.0-10.0)
[2022-09-12 22:33] LABS: BLOOD UREA NITROGEN 43 MG/DL (9-23); CALCIUM LEVEL 7.9 MG/DL (8.3-10.6); CARBON DIOXIDE LEVEL 30 MMOL/L (20-31); CHLORIDE LEVEL 112 MMOL/L (98-107); CREATININE FOR GFR 0.58 MG/DL (0.70-1.30); GLOMERULAR FILTRATION RATE > 60.0 (>42); GLUCOSE, FASTING 142 MG/DL (74-106); POTASSIUM SERUM 3.7 MMOL/L (3.5-5.1); SODIUM LEVEL 151 MMOL/L (136-145)
[2022-09-12] MEDS ORDERED: D5W 1,000 ML IV ONE (22:50)
[2022-09-12] MEDS ORDERED: MOM 30ML SUSPENSION UDC PO PRN (22:50)
[2022-09-12] MEDS ORDERED: GLUCOSE 4GM CHEW TABLET PO PRN (23:00)
[2022-09-12] MEDS ORDERED: DEXTROSE 50% 50ML SYRINGE IV PRN (23:00)
[2022-09-12] MEDS ORDERED: GLUCAGON INJ 1MG VIAL SC PRN (23:00)
[2022-09-12 23:19] LABS: ABG BASE EXCESS 3.2 (-2.0-2.0); ABG HCO3 29.1 MMOL/L (22.0-26.0); ABG O2 SATURATION 94.9 % (95.0-99.0); ABG PARTIAL PRESSURE CO2 47.8 mmHg (35.0-45.0); ABG PARTIAL PRESSURE O2 75.9 mmHg (75.0-100.0); ABG STANDARD HCO3 27.2 MMOL/L. (22.0-26.0); ABG TOTAL CO2 30.5 MMOL/L (23.0-31.0); ABG pH (ARTERIAL) 7.402 UNITS (7.350-7.450)
[2022-09-13] VITALS (13 sets, daily range): BP systolic 102–141; BP diastolic 59–84; TEMP 97.4–97.7; O2SAT 91–95
[2022-09-13] MEDS ORDERED: METOPROLOL TART 50 MG TAB PO SCH
[2022-09-13] MEDS: IPRATROPIUM 0.5MG/ALBUTEROL 2.5MG INH SOL UD 3ML (DUONEB) NEB SCH ×5 (02:20→21:30)
[2022-09-13] MEDS: METOPROLOL 5 MG/5 ML VIAL IV SCH ×3 (03:20→03:34)
[2022-09-13 04:52] LABS: BASO % 0.2 % (0.0-1.0); EOS % 0.2 % (0.0-3.0); HEMATOCRIT 54.4 % (42.0-52.0); HEMOGLOBIN 17.2 g/dl (13.5-17.5); LYMPH # 2.2 10^3/uL (1.5-5.0); LYMPH % 11.8 % (24.0-44.0); MEAN CORPUSCULAR HEMOGLOBIN 30.2 pg (27.0-33.0); MEAN CORPUSCULAR HGB CONC 31.6 g/dl (32.0-36.5); MEAN CORPUSCULAR VOLUME 95.4 fl (80.0-96.0); MONO # 1.4 10^3/uL (0.0-0.8); MONO % 7.6 % (2.0-8.0); NEUTROPHILS # 14.9 10^3/uL (1.5-8.5); NEUTROPHILS % 79.5 % (36.0-66.0); PLATELET COUNT, AUTOMATED 151 10^3/uL (150-450); WHITE BLOOD COUNT 18.8 10^3/uL (4.0-10.0)
[2022-09-13] MEDS: D5W/0.45% SODIUM CHLORIDE 1,000 ML IV SCH ×3 (04:55→20:05)
[2022-09-13] MEDS ORDERED: AMIODARONE HCL 150 MG in IV 1 EA IV ONE ×2 (05:00→07:00)
[2022-09-13] MEDS ORDERED: AMIODARONE 200 MG TAB (PACERONE) PO ONE (05:00)
[2022-09-13] MEDS ORDERED: POTASSIUM CHLORIDE 10MEQ SR TABLET PO ONE (05:00)
[2022-09-13] MEDS ORDERED: METOPROLOL TART 50 MG TAB PO ONE (05:00)
[2022-09-13 05:12] LABS: BLOOD UREA NITROGEN 33 MG/DL (9-23); CALCIUM LEVEL 7.4 MG/DL (8.3-10.6); CARBON DIOXIDE LEVEL 30 MMOL/L (20-31); CHLORIDE LEVEL 110 MMOL/L (98-107); CREATININE FOR GFR 0.56 MG/DL (0.70-1.30); GLOMERULAR FILTRATION RATE > 60.0 (>42); GLUCOSE, FASTING 186 MG/DL (74-106); POTASSIUM SERUM 3.6 MMOL/L (3.5-5.1); SODIUM LEVEL 147 MMOL/L (136-145)
[2022-09-13 07:25] LABS: BLOOD UREA NITROGEN 37 MG/DL (9-23); CALCIUM LEVEL 7.6 MG/DL (8.3-10.6); CARBON DIOXIDE LEVEL 25 MMOL/L (20-31); CHLORIDE LEVEL 111 MMOL/L (98-107); CREATININE FOR GFR 0.53 MG/DL (0.70-1.30); GLOMERULAR FILTRATION RATE > 60.0 (>42); GLUCOSE, FASTING 163 MG/DL (74-106); POTASSIUM SERUM 4.1 MMOL/L (3.5-5.1); SODIUM LEVEL 148 MMOL/L (136-145)
[2022-09-13 07:27] LABS: CPK CREATINE PHOSPHOKINASE 942 U/L (46-171)
[2022-09-13] MEDS: INSULIN LISPRO (NovoLOG) PER UNIT SC SCH ×3 (07:30→17:30)
[2022-09-13 07:38] LABS: CPK CREATINE PHOSPHOKINASE 919 U/L (46-171)
[2022-09-13] MEDS ORDERED: NICOTINE POLACRILEX 2 MG GUM PO ONE (08:00)
[2022-09-13] MEDS: NICOTINE 21MG/24HR 1 EA TRANSDERMAL TD SCH (08:36)
[2022-09-13] MEDS: DOCUSATE SODIUM 100MG CAPSULE PO SCH ×2 (08:36→20:06)
[2022-09-13] MEDS ORDERED: AMIODARONE 200 MG TAB (PACERONE) PO SCH (09:00)
[2022-09-13] MEDS ORDERED: HYDR-3490 PO (09:01)
[2022-09-13] MEDS ORDERED: MOM30SS2 PO (09:01)
[2022-09-13] MEDS ORDERED: FISH1CAP26 PO (09:01)
[2022-09-13] MEDS ORDERED: FLOM0.4C39 PO (09:01)
[2022-09-13] MEDS ORDERED: DOCU100C16 PO (09:01)
[2022-09-13] MEDS ORDERED: FURO20TA2 PO (09:01)
[2022-09-13] MEDS ORDERED: FLUT1BLS3 INH (09:01)
[2022-09-13] MEDS ORDERED: CIPR0.3S37 OS (09:01)
[2022-09-13] MEDS ORDERED: ACET500T15 PO (09:01)
[2022-09-13] MEDS ORDERED: METF-838 PO (09:01)
[2022-09-13] MEDS ORDERED: SPIR12.9 INH (09:01)
[2022-09-13] MEDS ORDERED: PREDOPD OS (09:01)
[2022-09-13] MEDS ORDERED: VITA100093 PO (09:01)
[2022-09-13] MEDS ORDERED: ALBU2.5V10 INH (09:01)
[2022-09-13] MEDS ORDERED: NICO2GUM42 MT (09:01)
[2022-09-13] MEDS ORDERED: VENTAER INH (09:01)
[2022-09-13] MEDS ORDERED: PATIENT COMMENT (09:02)
[2022-09-13] MEDS ORDERED: HOME MED LIST COMPLETE! XX SCH (09:05)
[2022-09-13] MEDS ORDERED: NICOTINE POLACRILEX 2 MG GUM PO PRN (10:00)
[2022-09-13] MEDS: APIXABAN 2.5 MG TAB (ELIQUIS) PO SCH ×2 (13:31→20:06)
[2022-09-13] MEDS: METOPROLOL TARTRATE 100MG TAB PO SCH ×3 (13:31→23:49)
[2022-09-13] MEDS: AMIODARONE 200 MG TAB (PACERONE) PO SCH ×3 (13:32→20:07)
[2022-09-13] MEDS: ASPIRIN 81MG ENTERIC TABLET PO SCH (13:32)
[2022-09-13] MEDS: PANTOPRAZOLE 40MG TAB (PROTONIX) PO SCH (13:32)
[2022-09-13] MEDS ORDERED: CAPSAICIN 0.025% CR 60 GM TOP PRN (15:05)
[2022-09-13] MEDS ORDERED: ALBUTEROL SULFATE 2.5MG/0.5ML INH NEB SOLN INH PRN (15:05)
[2022-09-13] MEDS ORDERED: BACLOFEN 10 MG TAB PO PRN (15:05)
[2022-09-13] MEDS ORDERED: PREPARATION H OINTMENT (HEMORRHOID) PR PRN (15:05)
[2022-09-13] MEDS: CIPROFLOXACIN 0.3% OPHTH SOLN 2.5ML OS SCH ×2 (17:59→20:05)
[2022-09-13] MEDS: prednisoLONE ACET 1% OPHTH SUSP 5ML OS SCH ×2 (18:00→20:05)
[2022-09-13] MEDS: ATORVASTATIN 20 MG TAB PO SCH (20:06)
[2022-09-13] MEDS: COSOPT OCUMETER PLUS 10ML (DORZOLAMIDE/TIMOLOL) OS SCH (20:06)
[2022-09-13] MEDS: LATANOPROST 0.005% OPHTH SOLN 2.5 ML OU SCH (20:06)
[2022-09-13] MEDS: FINASTERIDE 5MG TAB PO SCH (20:06)
[2022-09-13] MEDS ORDERED: INSULIN LISPRO (NovoLOG) PER UNIT SC SCH (21:00)
[2022-09-13] MEDS ORDERED: TERAZOSIN 1 MG CAP PO SCH (21:00)
[2022-09-14] MEDS: IPRATROPIUM 0.5MG/ALBUTEROL 2.5MG INH SOL UD 3ML (DUONEB) NEB SCH ×4 (01:49→21:10)
[2022-09-14] MEDS: D5W/0.45% SODIUM CHLORIDE 1,000 ML IV SCH ×2 (03:52→13:58)
[2022-09-14 03:56] VITALS: BP 112/69; TEMP 98.3; O2SAT 94
[2022-09-14 05:16] LABS: BASO % 0.2 % (0.0-1.0); EOS # 0.3 10^3/uL (0.0-0.5); EOS % 1.7 % (0.0-3.0); HEMATOCRIT 49.4 % (42.0-52.0); HEMOGLOBIN 15.6 g/dl (13.5-17.5); LYMPH # 2.6 10^3/uL (1.5-5.0); LYMPH % 14.8 % (24.0-44.0); MEAN CORPUSCULAR HEMOGLOBIN 30.3 pg (27.0-33.0); MEAN CORPUSCULAR HGB CONC 31.6 g/dl (32.0-36.5); MEAN CORPUSCULAR VOLUME 95.9 fl (80.0-96.0); MONO # 1.1 10^3/uL (0.0-0.8); MONO % 6.2 % (2.0-8.0); NEUTROPHILS # 13.2 10^3/uL (1.5-8.5); NEUTROPHILS % 75.7 % (36.0-66.0); PLATELET COUNT, AUTOMATED 146 10^3/uL (150-450); RED BLOOD COUNT 5.15 10^6/uL (4.30-6.10); WHITE BLOOD COUNT 17.5 10^3/uL (4.0-10.0)
[2022-09-14 05:52] LABS: BLOOD UREA NITROGEN 18 MG/DL (9-23); CALCIUM LEVEL 7.6 MG/DL (8.3-10.6); CARBON DIOXIDE LEVEL 34 MMOL/L (20-31); CHLORIDE LEVEL 106 MMOL/L (98-107); GLOMERULAR FILTRATION RATE > 60.0 (>42); GLUCOSE, FASTING 127 MG/DL (74-106); POTASSIUM SERUM 4.2 MMOL/L (3.5-5.1); SODIUM LEVEL 143 MMOL/L (136-145)
[2022-09-14] MEDS: METOPROLOL TARTRATE 100MG TAB PO SCH ×3 (06:00→18:17)
[2022-09-14] MEDS: INSULIN LISPRO (NovoLOG) PER UNIT SC SCH (07:22)
[2022-09-14 08:00] VITALS: BP 127/77; TEMP 97.6; O2SAT 94
[2022-09-14] MEDS: COSOPT OCUMETER PLUS 10ML (DORZOLAMIDE/TIMOLOL) OS SCH ×2 (08:16→20:33)
[2022-09-14] MEDS: CIPROFLOXACIN 0.3% OPHTH SOLN 2.5ML OS SCH ×4 (08:17→20:33)
[2022-09-14] MEDS: prednisoLONE ACET 1% OPHTH SUSP 5ML OS SCH ×4 (08:17→20:33)
[2022-09-14] MEDS: OMEGA-3 1000MG CAPSULE PO SCH (09:22)
[2022-09-14] MEDS: DOCUSATE SODIUM 100MG CAPSULE PO SCH ×2 (09:22→20:32)
[2022-09-14] MEDS: NICOTINE 21MG/24HR 1 EA TRANSDERMAL TD SCH (09:22)
[2022-09-14] MEDS: ASPIRIN 81MG ENTERIC TABLET PO SCH (09:22)
[2022-09-14] MEDS: TAMSULOSIN 0.4 MG CAP PO SCH (09:22)
[2022-09-14] MEDS: APIXABAN 2.5 MG TAB (ELIQUIS) PO SCH ×2 (09:23→20:33)
[2022-09-14] MEDS: AMIODARONE 200 MG TAB (PACERONE) PO SCH ×4 (09:23→20:32)
[2022-09-14] MEDS: PANTOPRAZOLE 40MG TAB (PROTONIX) PO SCH (09:23)
[2022-09-14] MEDS: VITAMIN D 1,000 INTERNATIONAL UNITS TABLET PO SCH (09:23)
[2022-09-14 12:00] VITALS: BP 108/58; TEMP 98; O2SAT 90
[2022-09-14 16:00] VITALS: BP 143/75; TEMP 98.9; O2SAT 91
[2022-09-14 20:00] VITALS: BP 109/67; TEMP 97.7; O2SAT 93
[2022-09-14] MEDS: ATORVASTATIN 20 MG TAB PO SCH (20:32)
[2022-09-14] MEDS: LATANOPROST 0.005% OPHTH SOLN 2.5 ML OU SCH (20:33)
[2022-09-14] MEDS: FINASTERIDE 5MG TAB PO SCH (20:33)
[2022-09-15] VITALS: BP 102/70; TEMP 97.9; O2SAT 94
[2022-09-15] MEDS: IPRATROPIUM 0.5MG/ALBUTEROL 2.5MG INH SOL UD 3ML (DUONEB) NEB SCH ×3 (02:00→13:44)
[2022-09-15 04:00] VITALS: BP 115/57; TEMP 98.1; O2SAT 93
[2022-09-15 04:33] LABS: BASO % 0.2 % (0.0-1.0); EOS # 0.3 10^3/uL (0.0-0.5); EOS % 1.6 % (0.0-3.0); HEMATOCRIT 45.4 % (42.0-52.0); HEMOGLOBIN 14.7 g/dl (13.5-17.5); LYMPH # 2.1 10^3/uL (1.5-5.0); LYMPH % 12.6 % (24.0-44.0); MEAN CORPUSCULAR HEMOGLOBIN 30.6 pg (27.0-33.0); MEAN CORPUSCULAR HGB CONC 32.4 g/dl (32.0-36.5); MEAN CORPUSCULAR VOLUME 94.4 fl (80.0-96.0); MONO # 0.7 10^3/uL (0.0-0.8); MONO % 4.4 % (2.0-8.0); NEUTROPHILS # 13.2 10^3/uL (1.5-8.5); NEUTROPHILS % 80.2 % (36.0-66.0); PLATELET COUNT, AUTOMATED 159 10^3/uL (150-450); RED BLOOD COUNT 4.81 10^6/uL (4.30-6.10); WHITE BLOOD COUNT 16.4 10^3/uL (4.0-10.0)
[2022-09-15 04:59] LABS: BLOOD UREA NITROGEN 15 MG/DL (9-23); CALCIUM LEVEL 7.5 MG/DL (8.3-10.6); CARBON DIOXIDE LEVEL 30 MMOL/L (20-31); CHLORIDE LEVEL 105 MMOL/L (98-107); CREATININE FOR GFR 0.47 MG/DL (0.70-1.30); GLOMERULAR FILTRATION RATE > 60.0 (>42); GLUCOSE, FASTING 91 MG/DL (74-106); POTASSIUM SERUM 3.9 MMOL/L (3.5-5.1); SODIUM LEVEL 140 MMOL/L (136-145)
[2022-09-15] MEDS: METOPROLOL TARTRATE 100MG TAB PO SCH ×4 (06:12→17:18)
[2022-09-15 08:00] VITALS: BP 122/65; TEMP 97.8; O2SAT 91
[2022-09-15] MEDS: AMIODARONE 200 MG TAB (PACERONE) PO SCH ×4 (08:27→20:45)
[2022-09-15] MEDS: COSOPT OCUMETER PLUS 10ML (DORZOLAMIDE/TIMOLOL) OS SCH ×2 (09:21→20:45)
[2022-09-15] MEDS: CIPROFLOXACIN 0.3% OPHTH SOLN 2.5ML OS SCH ×4 (09:21→20:45)
[2022-09-15] MEDS: prednisoLONE ACET 1% OPHTH SUSP 5ML OS SCH ×4 (09:21→20:45)
[2022-09-15] MEDS: NICOTINE 21MG/24HR 1 EA TRANSDERMAL TD SCH (09:21)
[2022-09-15] MEDS: APIXABAN 2.5 MG TAB (ELIQUIS) PO SCH ×2 (09:22→20:44)
[2022-09-15] MEDS: OMEGA-3 1000MG CAPSULE PO SCH (09:22)
[2022-09-15] MEDS: PANTOPRAZOLE 40MG TAB (PROTONIX) PO SCH (09:22)
[2022-09-15] MEDS: TAMSULOSIN 0.4 MG CAP PO SCH (09:22)
[2022-09-15] MEDS: VITAMIN D 1,000 INTERNATIONAL UNITS TABLET PO SCH (09:22)
[2022-09-15] MEDS: ASPIRIN 81MG ENTERIC TABLET PO SCH (09:22)
[2022-09-15] MEDS: DOCUSATE SODIUM 100MG CAPSULE PO SCH ×2 (09:22→20:44)
[2022-09-15 16:00] VITALS: BP 144/65; TEMP 98.7; O2SAT 89
[2022-09-15 16:29] VITALS: BP 142/76; TEMP 98.2; O2SAT 90
[2022-09-15] MEDS: ACETAMINOPHEN 500 MG TAB PO PRN (17:18)
[2022-09-15 20:00] VITALS: BP 128/68; TEMP 97.7; O2SAT 93
[2022-09-15] MEDS: FINASTERIDE 5MG TAB PO SCH (20:44)
[2022-09-15] MEDS: ATORVASTATIN 20 MG TAB PO SCH (20:45)
[2022-09-15] MEDS: LATANOPROST 0.005% OPHTH SOLN 2.5 ML OU SCH (20:50)
[2022-09-16] MEDS: METOPROLOL TARTRATE 100MG TAB PO SCH ×5 (05:55→23:30)
[2022-09-16 06:00] VITALS: BP 142/73; TEMP 97.3; O2SAT 95
[2022-09-16 06:20] LABS: BASO % 0.2 % (0.0-1.0); EOS # 0.4 10^3/uL (0.0-0.5); EOS % 2.8 % (0.0-3.0); HEMATOCRIT 47.9 % (42.0-52.0); HEMOGLOBIN 15.3 g/dl (13.5-17.5); LYMPH # 2.2 10^3/uL (1.5-5.0); LYMPH % 16.5 % (24.0-44.0); MEAN CORPUSCULAR HEMOGLOBIN 30.4 pg (27.0-33.0); MEAN CORPUSCULAR HGB CONC 31.9 g/dl (32.0-36.5); MONO # 0.7 10^3/uL (0.0-0.8); MONO % 5.6 % (2.0-8.0); NEUTROPHILS # 9.8 10^3/uL (1.5-8.5); NEUTROPHILS % 73.7 % (36.0-66.0); PLATELET COUNT, AUTOMATED 180 10^3/uL (150-450); RED BLOOD COUNT 5.04 10^6/uL (4.30-6.10); WHITE BLOOD COUNT 13.3 10^3/uL (4.0-10.0)
[2022-09-16 06:47] LABS: BLOOD UREA NITROGEN 14 MG/DL (9-23); CALCIUM LEVEL 7.6 MG/DL (8.3-10.6); CARBON DIOXIDE LEVEL 33 MMOL/L (20-31); CHLORIDE LEVEL 104 MMOL/L (98-107); CREATININE FOR GFR 0.48 MG/DL (0.70-1.30); GLOMERULAR FILTRATION RATE > 60.0 (>42); GLUCOSE, FASTING 85 MG/DL (74-106); POTASSIUM SERUM 3.9 MMOL/L (3.5-5.1); SODIUM LEVEL 142 MMOL/L (136-145)
[2022-09-16 09:30] VITALS: BP 143/79
[2022-09-16] MEDS: AMIODARONE 200 MG TAB (PACERONE) PO SCH ×4 (09:40→21:51)
[2022-09-16] MEDS: DOCUSATE SODIUM 100MG CAPSULE PO SCH ×2 (09:40→21:51)
[2022-09-16] MEDS: NICOTINE 21MG/24HR 1 EA TRANSDERMAL TD SCH (09:40)
[2022-09-16] MEDS: VITAMIN D 1,000 INTERNATIONAL UNITS TABLET PO SCH (09:40)
[2022-09-16] MEDS: TAMSULOSIN 0.4 MG CAP PO SCH (09:40)
[2022-09-16] MEDS: ASPIRIN 81MG ENTERIC TABLET PO SCH (09:40)
[2022-09-16] MEDS: APIXABAN 2.5 MG TAB (ELIQUIS) PO SCH ×2 (09:40→21:51)
[2022-09-16] MEDS: OMEGA-3 1000MG CAPSULE PO SCH (09:40)
[2022-09-16] MEDS: PANTOPRAZOLE 40MG TAB (PROTONIX) PO SCH (09:40)
[2022-09-16] MEDS: COSOPT OCUMETER PLUS 10ML (DORZOLAMIDE/TIMOLOL) OS SCH ×2 (09:41→21:52)
[2022-09-16] MEDS: CIPROFLOXACIN 0.3% OPHTH SOLN 2.5ML OS SCH ×4 (09:41→21:52)
[2022-09-16] MEDS: prednisoLONE ACET 1% OPHTH SUSP 5ML OS SCH ×4 (09:41→21:52)
[2022-09-16] MEDS: ACETAMINOPHEN 500 MG TAB PO PRN (10:41)
[2022-09-16 14:00] VITALS: BP 116/66; TEMP 98.1; O2SAT 92
[2022-09-16 20:07] VITALS: BP 153/87; TEMP 98.2; O2SAT 95
[2022-09-16] MEDS: ATORVASTATIN 20 MG TAB PO SCH (21:51)
[2022-09-16] MEDS: FINASTERIDE 5MG TAB PO SCH (21:51)
[2022-09-16] MEDS: LATANOPROST 0.005% OPHTH SOLN 2.5 ML OU SCH (21:52)
[2022-09-16 23:30] VITALS: BP 138/75
[2022-09-17 06:00] VITALS: BP 132/73; TEMP 97.9; O2SAT 92
[2022-09-17] MEDS: METOPROLOL TARTRATE 100MG TAB PO SCH (06:00)
[2022-09-17 06:20] LABS: BLOOD UREA NITROGEN 13 MG/DL (9-23); CALCIUM LEVEL 7.3 MG/DL (8.3-10.6); CARBON DIOXIDE LEVEL 30 MMOL/L (20-31); CHLORIDE LEVEL 104 MMOL/L (98-107); CREATININE FOR GFR 0.47 MG/DL (0.70-1.30); GLOMERULAR FILTRATION RATE > 60.0 (>42); GLUCOSE, FASTING 97 MG/DL (74-106); POTASSIUM SERUM 5.6 MMOL/L (3.5-5.1); SODIUM LEVEL 140 MMOL/L (136-145)
[2022-09-17] MEDS ORDERED: AMIO200T49 PO (06:28)
[2022-09-17] MEDS ORDERED: PANT40TA29 PO (06:29)
[2022-09-17] MEDS ORDERED: LOPR1TAB7 PO (06:29)
[2022-09-17] MEDS ORDERED: ELIQ2.5T PO (06:29)
[2022-09-17] MEDS ORDERED: NICO21PAT TD (06:29)
[2022-09-17 06:30] LABS: BASO % 0.1 % (0.0-1.0); EOS # 0.4 10^3/uL (0.0-0.5); EOS % 2.7 % (0.0-3.0); HEMOGLOBIN 14.3 g/dl (13.5-17.5); LYMPH # 2.2 10^3/uL (1.5-5.0); MEAN CORPUSCULAR HEMOGLOBIN 30.7 pg (27.0-33.0); MEAN CORPUSCULAR HGB CONC 32.5 g/dl (32.0-36.5); MEAN CORPUSCULAR VOLUME 94.4 fl (80.0-96.0); MONO # 0.9 10^3/uL (0.0-0.8); MONO % 6.1 % (2.0-8.0); NEUTROPHILS # 10.3 10^3/uL (1.5-8.5); NEUTROPHILS % 73.5 % (36.0-66.0); PLATELET COUNT, AUTOMATED 232 10^3/uL (150-450); RED BLOOD COUNT 4.66 10^6/uL (4.30-6.10)
[2022-09-17] MEDS ORDERED: PATIROMER SORBITEX CALCIUM 8.4 GM POWDER PACKET (VELTASSA) PO ONE (09:10)
[2022-09-17] MEDS: OMEGA-3 1000MG CAPSULE PO SCH (09:39)
[2022-09-17] MEDS: AMIODARONE 200 MG TAB (PACERONE) PO SCH (09:39)
[2022-09-17] MEDS: TAMSULOSIN 0.4 MG CAP PO SCH (09:39)
[2022-09-17] MEDS: VITAMIN D 1,000 INTERNATIONAL UNITS TABLET PO SCH (09:39)
[2022-09-17] MEDS: ASPIRIN 81MG ENTERIC TABLET PO SCH (09:39)
[2022-09-17] MEDS: PANTOPRAZOLE 40MG TAB (PROTONIX) PO SCH (09:39)
[2022-09-17] MEDS: DOCUSATE SODIUM 100MG CAPSULE PO SCH (09:39)
[2022-09-17] MEDS: CIPROFLOXACIN 0.3% OPHTH SOLN 2.5ML OS SCH (09:40)
[2022-09-17] MEDS: COSOPT OCUMETER PLUS 10ML (DORZOLAMIDE/TIMOLOL) OS SCH (09:40)
[2022-09-17] MEDS: prednisoLONE ACET 1% OPHTH SUSP 5ML OS SCH (09:41)
[2022-09-17] MEDS: NICOTINE 21MG/24HR 1 EA TRANSDERMAL TD SCH (09:46)
[2022-09-17] MEDS: ACETAMINOPHEN 500 MG TAB PO PRN (09:47)
[2022-09-17] MEDS: APIXABAN 2.5 MG TAB (ELIQUIS) PO SCH (09:56)
[2022-09-17] MEDS ORDERED: CALCIUM GLUCONATE 1,000 MG in D5W MINI-BAG PLUS 100 ML IV ONE (10:00)
== END 2022-09-17 11:00 | disposition short-term general hospital (02) | DRG 308 ==
LOC: EDBD 11:11 → M ED 11:11 → M ED INP 22:47 → M ICU 09-13 03:46 → M MSPAV 09-15 16:48
PROVIDERS: ADMIT Internal Medicine Nephrology; ATTEND General Practice
PROC: B246ZZZ Ultrasonography of Right and Left Heart (ICD-10-PCS; principal; 2022-09-16)
DX: I48.91 Unspecified atrial fibrillation (principal); G93.41 Metabolic encephalopathy; E87.0 Hyperosmolality and hypernatremia; M62.82 Rhabdomyolysis; J96.11 Chronic respiratory failure with hypoxia; E86.0 Dehydration; I10 Essential (primary) hypertension; E78.00 Pure hypercholesterolemia, unspecified; J44.9 Chronic obstructive pulmonary disease, unspecified; I48.92 Unspecified atrial flutter; H40.9 Unspecified glaucoma; K21.9 Gastro-esophageal reflux disease without esophagitis; K58.9 Irritable bowel syndrome, unspecified; F41.9 Anxiety disorder, unspecified; R26.89 Other abnormalities of gait and mobility; E87.5 Hyperkalemia; F31.9 Bipolar disorder, unspecified; L89.219 Pressure ulcer of right hip, unspecified stage; L89.229 Pressure ulcer of left hip, unspecified stage; L89.899 Pressure ulcer of other site, unspecified stage; N40.1 Benign prostatic hyperplasia with lower urinary tract symptoms; M25.562 Pain in left knee; M54.9 Dorsalgia, unspecified; G89.29 Other chronic pain; K59.00 Constipation, unspecified; F17.200 Nicotine dependence, unspecified, uncomplicated; D72.829 Elevated white blood cell count, unspecified; Z99.81 Dependence on supplemental oxygen; Z79.82 Long term (current) use of aspirin; Z79.84 Long term (current) use of oral hypoglycemic drugs; Z79.899 Other long term (current) drug therapy; Z20.822 Contact with and (suspected) exposure to COVID-19

== ENCOUNTER 2022-10-04 11:29 | Emergency (ER) | payer OTHER ==
[~2022-10-04] VITALS: Ht 182.9 cm; Wt 81.8 kg
[~2022-10-04 11:29] MED LIST changes: +ALBU2.5V10 INH; +AMIO200T49 PO; +CIPR0.3S37 OS; +DICL100G10 TOP; -DICL1GEL3 TOP; +DOCU100C16 PO; +ELIQ2.5T PO; +FISH1CAP26 PO; +FLOM0.4C39 PO; +FLUT1BLS3 INH; +FURO20TA2 PO; +HYDR-3490 PO; +LOPR1TAB7 PO; +METF-838 PO; +MOM30SS2 PO; +NICO21PAT TD; +NICO2GUM42 MT; +PANT40TA29 PO; +PATIENT COMMENT; +PREDOPD OS; +SPIR12.9 INH; +VENTAER INH; +VITA100093 PO
[2022-10-04] MEDS ORDERED: CEPH500C PO (14:43)
[2022-10-04 14:51] VITALS: BP 130/84; TEMP 96.7; O2SAT 94
== END 2022-10-04 15:27 | disposition home or self-care (01) ==
LOC: M ED 11:29
DX: Z48.00 Encounter for change or removal of nonsurgical wound dressing (principal); L89.219 Pressure ulcer of right hip, unspecified stage; I10 Essential (primary) hypertension; E78.00 Pure hypercholesterolemia, unspecified; J44.9 Chronic obstructive pulmonary disease, unspecified; F17.200 Nicotine dependence, unspecified, uncomplicated; H40.9 Unspecified glaucoma; K21.9 Gastro-esophageal reflux disease without esophagitis; K57.92 Diverticulitis of intestine, part unspecified, without perforation or abscess without bleeding; K58.9 Irritable bowel syndrome, unspecified; N40.0 Benign prostatic hyperplasia without lower urinary tract symptoms; F41.9 Anxiety disorder, unspecified; F32.A Depression, unspecified; F31.9 Bipolar disorder, unspecified; Z79.82 Long term (current) use of aspirin; Z79.899 Other long term (current) drug therapy

== ENCOUNTER 2022-10-20 09:09 | Emergency (ER) | payer OTHER ==
[~2022-10-20] VITALS: Ht 182.9 cm; Wt 81.8 kg
[~2022-10-20 09:09] MED LIST changes: +CEPH500C PO
[2022-10-20 09:10] VITALS: BP 141/71; TEMP 96.6; O2SAT 86
[2022-10-20] MEDS ORDERED: AMIO400T2 (09:31)
[2022-10-20] MEDS ORDERED: METO100T5 (09:31)
== END 2022-10-20 12:00 | disposition home or self-care (01) ==
LOC: M ED 09:09
DX: Z48.00 Encounter for change or removal of nonsurgical wound dressing (principal); I10 Essential (primary) hypertension; E78.00 Pure hypercholesterolemia, unspecified; F41.9 Anxiety disorder, unspecified; F32.A Depression, unspecified; Z95.818 Presence of other cardiac implants and grafts; F17.200 Nicotine dependence, unspecified, uncomplicated; Z99.81 Dependence on supplemental oxygen; Z79.82 Long term (current) use of aspirin; Z79.899 Other long term (current) drug therapy

== ENCOUNTER 2022-11-26 17:01 | Inpatient (IN) | payer MEDICAID, OTHER ==
[~2022-11-26] VITALS: Ht 182.9 cm; Wt 77.3 kg
[~2022-11-26 17:01] MED LIST changes: +AMIO400T2 PO; +DOXA1TAB85 PO; -FLUT15.820; +FLUT15.820 NARES; +METO100T5 PO; +TAMS1CAP17 PO; +VIAG100T PO
[2022-11-26 21:25] LABS: BASO # 0.1 10^3/uL (0.0-0.2); BASO % 0.7 % (0.0-1.0); EOS # 0.4 10^3/uL (0.0-0.5); EOS % 3.7 % (0.0-3.0); HEMATOCRIT 45.6 % (42.0-52.0); HEMOGLOBIN 14.6 g/dl (13.5-17.5); LYMPH # 2.4 10^3/uL (1.5-5.0); LYMPH % 19.6 % (24.0-44.0); MEAN CORPUSCULAR HEMOGLOBIN 30.7 pg (27.0-33.0); MONO # 0.7 10^3/uL (0.0-0.8); MONO % 5.9 % (2.0-8.0); NEUTROPHILS # 8.4 10^3/uL (1.5-8.5); NEUTROPHILS % 69.4 % (36.0-66.0); PLATELET COUNT, AUTOMATED 328 10^3/uL (150-450); RED BLOOD COUNT 4.75 10^6/uL (4.30-6.10)
[2022-11-26 21:37] LABS: ERYTHROCYTE SEDIMENTATION RATE 15 mm/hr (0-20); INR 1.13; PROTHROMBIN TIME 14.2 SECONDS (12.5-14.5)
[2022-11-26 21:38] LABS: PARTIAL THROMBOPLASTIN TIME 28.1 SECONDS (24.8-34.2)
[2022-11-26 21:58] LABS: ALBUMIN 3.6 G/DL (3.2-5.2); ALKALINE PHOSPHATASE 93 U/L (46-116); ALT/SGPT 20 U/L (7.0-40); AST/SGOT 15 U/L (<34); BILIRUBIN,DIRECT 0.2 MG/DL (<0.4); BILIRUBIN,TOTAL 0.4 MG/DL (0.3-1.2); BLOOD UREA NITROGEN 19 MG/DL (9-23); CARBON DIOXIDE LEVEL 37 MMOL/L (20-31); CHLORIDE LEVEL 102 MMOL/L (98-107); CREATININE FOR GFR 0.97 MG/DL (0.70-1.30); GLOMERULAR FILTRATION RATE > 60.0 (>42); GLUCOSE, FASTING 92 MG/DL (74-106); POTASSIUM SERUM 4.5 MMOL/L (3.5-5.1); SODIUM LEVEL 140 MMOL/L (136-145); TOTAL PROTEIN 6.4 G/DL (5.7-8.2)
[2022-11-26] MEDS ORDERED: VANCOMYCIN HCL 1,500 MG in IV FLUID PLACE HOLDER 1 EA IV ONE (23:00)
[2022-11-26] MEDS ORDERED: VANCOMYCIN HCL 750 MG, VIAL MATE ADAPTER 1 EACH in D5W 250 ML IV ONE (23:00)
[2022-11-26] MEDS ORDERED: ACETAMINOPHEN TAB 650MG DOSE (2X325MG) PO PRN (23:45)
[2022-11-27] VITALS (9 sets, daily range): BP systolic 89–125; BP diastolic 47–82; TEMP 97.2; O2SAT 90–92
[2022-11-27] MEDS ORDERED: VANCOMYCIN HCL 750 MG, VIAL MATE ADAPTER 1 EACH in D5W 250 ML IV ONE ×3
[2022-11-27] MEDS: DOCUSATE SODIUM 100MG CAPSULE PO SCH ×3 (00:57→20:31)
[2022-11-27] MEDS ORDERED: LISI10TA22 PO (01:14)
[2022-11-27] MEDS ORDERED: HOME MED LIST COMPLETE! XX SCH (01:15)
[2022-11-27] MEDS ORDERED: ALBUTEROL SULFATE 2.5MG/0.5ML INH NEB SOLN INH PRN (01:35)
[2022-11-27] MEDS ORDERED: GLUCOSE 4GM CHEW TABLET PO PRN (01:35)
[2022-11-27] MEDS ORDERED: zolPIDEM TARTRATE 5 MG TAB PO PRN (01:35)
[2022-11-27] MEDS ORDERED: DEXTROSE 50% 50ML SYRINGE IV PRN (01:35)
[2022-11-27] MEDS ORDERED: GLUCAGON INJ 1MG VIAL SC PRN (01:35)
[2022-11-27 06:24] LABS: HEMATOCRIT 43.8 % (42.0-52.0); MEAN CORPUSCULAR HEMOGLOBIN 30.9 pg (27.0-33.0); MEAN CORPUSCULAR VOLUME 96.7 fl (80.0-96.0); PLATELET COUNT, AUTOMATED 288 10^3/uL (150-450); RED BLOOD COUNT 4.53 10^6/uL (4.30-6.10); WHITE BLOOD COUNT 10.4 10^3/uL (4.0-10.0)
[2022-11-27 06:45] LABS: BLOOD UREA NITROGEN 14 MG/DL (9-23); CALCIUM LEVEL 8.6 MG/DL (8.3-10.6); CARBON DIOXIDE LEVEL 35 MMOL/L (20-31); CHLORIDE LEVEL 104 MMOL/L (98-107); CREATININE FOR GFR 0.65 MG/DL (0.70-1.30); GLOMERULAR FILTRATION RATE > 60.0 (>42); GLUCOSE, FASTING 81 MG/DL (74-106); MAGNESIUM LEVEL 1.9 MG/DL (1.8-2.4); POTASSIUM SERUM 3.8 MMOL/L (3.5-5.1); SODIUM LEVEL 139 MMOL/L (136-145)
[2022-11-27] MEDS: INSULIN LISPRO (NovoLOG) PER UNIT SC SCH ×4 (07:13→20:32)
[2022-11-27] MEDS: TIOTROPIUM INHALER/CAPSULE (SPIRIVA) INH SCH (07:38)
[2022-11-27] MEDS: ADVAIR HFA 115/21MCG INHALER INH SCH ×2 (07:39→20:02)
[2022-11-27] MEDS: AMIODARONE 200 MG TAB (PACERONE) PO SCH ×2 (08:32→20:28)
[2022-11-27] MEDS: COSOPT OCUMETER PLUS 10ML (DORZOLAMIDE/TIMOLOL) OS SCH ×2 (08:32→20:29)
[2022-11-27] MEDS: TAMSULOSIN 0.4 MG CAP PO SCH (08:32)
[2022-11-27] MEDS ORDERED: METOPROLOL TARTRATE 100MG TAB PO SCH (09:00)
[2022-11-27] MEDS ORDERED: DOXAZOSIN MESYLATE 1 MG TAB PO SCH (12:00)
[2022-11-27] MEDS ORDERED: SODIUM CHLORIDE 0.9% 1000ML IV ONE (14:15)
[2022-11-27 15:42] LABS: APPEARANCE, URINE CLEAR (CLEAR); BACTERIA, URINE AUTO NEGATIVE (NEGATIVE); BILIRUBIN, URINE AUTO NEGATIVE (NEGATIVE); BLOOD, URINE BLOOD NEGATIVE (NEGATIVE); COLOR, URINE YELLOW (YELLOW); GLUCOSE, URINE (UA) AUTO NEGATIVE (NEGATIVE); KETONE, URINE AUTO NEGATIVE (NEGATIVE); LEUKOCYTE ESTERASE, URINE AUTO NEGATIVE (NEGATIVE); MUCUS, URINE SMALL (NEGATIVE); NITRITE, URINE AUTO NEGATIVE (NEGATIVE); PROTEIN, URINE AUTO NEGATIVE (NEGATIVE); RBC, URINE AUTO 0 /HPF (0-3); SPECIFIC GRAVITY URINE AUTO 1.019 (1.002-1.035); SQUAMOUS EPITHELIAL CELL UR AU 0 /HPF (0-6); UROBILINOGEN, URINE AUTO 0.2 mg/dL (0.0-2.0); WBC, URINE AUTO 0 /HPF (0-3)
[2022-11-27] MEDS: FINASTERIDE 5MG TAB PO SCH (20:29)
[2022-11-27] MEDS: ATORVASTATIN 20 MG TAB PO SCH (20:30)
[2022-11-27] MEDS: HEPARIN SOD (PORCINE) 5000UNITS/ML 1ML VIAL/SYRINGE SC SCH (20:31)
[2022-11-27] MEDS: LATANOPROST 0.005% OPHTH SOLN 2.5 ML OU SCH (20:31)
[2022-11-27] MEDS ORDERED: NS 500 ML IV ONE (20:40)
[2022-11-28 06:33] LABS: BASO # 0.1 10^3/uL (0.0-0.2); BASO % 0.7 % (0.0-1.0); EOS # 0.4 10^3/uL (0.0-0.5); EOS % 4.3 % (0.0-3.0); HEMATOCRIT 42.4 % (42.0-52.0); HEMOGLOBIN 13.7 g/dl (13.5-17.5); LYMPH # 2.6 10^3/uL (1.5-5.0); LYMPH % 26.9 % (24.0-44.0); MEAN CORPUSCULAR HEMOGLOBIN 31.1 pg (27.0-33.0); MEAN CORPUSCULAR HGB CONC 32.3 g/dl (32.0-36.5); MEAN CORPUSCULAR VOLUME 96.4 fl (80.0-96.0); MONO # 0.6 10^3/uL (0.0-0.8); MONO % 6.6 % (2.0-8.0); NEUTROPHILS # 5.8 10^3/uL (1.5-8.5); NEUTROPHILS % 60.9 % (36.0-66.0); PLATELET COUNT, AUTOMATED 271 10^3/uL (150-450); WHITE BLOOD COUNT 9.6 10^3/uL (4.0-10.0)
[2022-11-28 06:43] LABS: BLOOD UREA NITROGEN 15 MG/DL (9-23); CALCIUM LEVEL 8.2 MG/DL (8.3-10.6); CARBON DIOXIDE LEVEL 33 MMOL/L (20-31); CHLORIDE LEVEL 104 MMOL/L (98-107); CREATININE FOR GFR 0.62 MG/DL (0.70-1.30); GLOMERULAR FILTRATION RATE > 60.0 (>42); GLUCOSE, FASTING 88 MG/DL (74-106); MAGNESIUM LEVEL 1.8 MG/DL (1.8-2.4); POTASSIUM SERUM 4.1 MMOL/L (3.5-5.1); SODIUM LEVEL 138 MMOL/L (136-145)
[2022-11-28 06:45] VITALS: BP 114/60; TEMP 97.1; O2SAT 93
[2022-11-28] MEDS: INSULIN LISPRO (NovoLOG) PER UNIT SC SCH ×4 (07:24→20:33)
[2022-11-28] MEDS: TIOTROPIUM INHALER/CAPSULE (SPIRIVA) INH SCH (07:32)
[2022-11-28] MEDS: ADVAIR HFA 115/21MCG INHALER INH SCH ×2 (07:33→19:11)
[2022-11-28] MEDS: HEPARIN SOD (PORCINE) 5000UNITS/ML 1ML VIAL/SYRINGE SC SCH ×2 (09:00→20:27)
[2022-11-28] MEDS: TAMSULOSIN 0.4 MG CAP PO SCH (09:00)
[2022-11-28] MEDS: DOCUSATE SODIUM 100MG CAPSULE PO SCH ×2 (09:00→20:27)
[2022-11-28] MEDS: COSOPT OCUMETER PLUS 10ML (DORZOLAMIDE/TIMOLOL) OS SCH ×2 (09:01→20:27)
[2022-11-28] MEDS: FLUTICASONE PROP 0.05% NASAL SPRAY 16 GM (FLONASE) NARES SCH (13:13)
[2022-11-28 14:00] VITALS: BP 116/73; TEMP 97.5; O2SAT 90
[2022-11-28] MEDS: POLYVINYL ALCOHOL OPHTH SOLN 15ML (LIQUITEARS) OU SCH ×2 (15:00→20:27)
[2022-11-28] MEDS: ATORVASTATIN 20 MG TAB PO SCH (20:26)
[2022-11-28] MEDS: FINASTERIDE 5MG TAB PO SCH (20:27)
[2022-11-28] MEDS: LATANOPROST 0.005% OPHTH SOLN 2.5 ML OU SCH (20:27)
[2022-11-28 20:36] VITALS: BP 137/60; TEMP 97.5; O2SAT 20; O2SAT 92
[2022-11-29 05:31] VITALS: BP 151/65; TEMP 97.7; O2SAT 89
[2022-11-29 06:34] LABS: BASO # 0.1 10^3/uL (0.0-0.2); BASO % 0.8 % (0.0-1.0); EOS # 0.5 10^3/uL (0.0-0.5); HEMATOCRIT 43.5 % (42.0-52.0); LYMPH # 2.2 10^3/uL (1.5-5.0); LYMPH % 24.8 % (24.0-44.0); MEAN CORPUSCULAR HEMOGLOBIN 30.6 pg (27.0-33.0); MEAN CORPUSCULAR HGB CONC 32.2 g/dl (32.0-36.5); MONO # 0.6 10^3/uL (0.0-0.8); MONO % 6.8 % (2.0-8.0); NEUTROPHILS # 5.6 10^3/uL (1.5-8.5); NEUTROPHILS % 62.2 % (36.0-66.0); PLATELET COUNT, AUTOMATED 266 10^3/uL (150-450); RED BLOOD COUNT 4.58 10^6/uL (4.30-6.10)
[2022-11-29 06:36] LABS: BLOOD UREA NITROGEN 12 MG/DL (9-23); CALCIUM LEVEL 8.4 MG/DL (8.3-10.6); CARBON DIOXIDE LEVEL 32 MMOL/L (20-31); CHLORIDE LEVEL 105 MMOL/L (98-107); CREATININE FOR GFR 0.55 MG/DL (0.70-1.30); GLOMERULAR FILTRATION RATE > 60.0 (>42); GLUCOSE, FASTING 82 MG/DL (74-106); MAGNESIUM LEVEL 1.7 MG/DL (1.8-2.4); POTASSIUM SERUM 4.3 MMOL/L (3.5-5.1); SODIUM LEVEL 140 MMOL/L (136-145)
[2022-11-29] MEDS: INSULIN LISPRO (NovoLOG) PER UNIT SC SCH ×3 (07:05→17:25)
[2022-11-29] MEDS: TIOTROPIUM INHALER/CAPSULE (SPIRIVA) INH SCH (07:33)
[2022-11-29] MEDS: ADVAIR HFA 115/21MCG INHALER INH SCH (07:33)
[2022-11-29] MEDS: DOCUSATE SODIUM 100MG CAPSULE PO SCH (08:24)
[2022-11-29] MEDS: TAMSULOSIN 0.4 MG CAP PO SCH (08:27)
[2022-11-29] MEDS: POLYVINYL ALCOHOL OPHTH SOLN 15ML (LIQUITEARS) OU SCH ×4 (08:27→17:25)
[2022-11-29] MEDS: FLUTICASONE PROP 0.05% NASAL SPRAY 16 GM (FLONASE) NARES SCH ×3 (08:27→08:41)
[2022-11-29] MEDS: HEPARIN SOD (PORCINE) 5000UNITS/ML 1ML VIAL/SYRINGE SC SCH (08:27)
[2022-11-29] MEDS: COSOPT OCUMETER PLUS 10ML (DORZOLAMIDE/TIMOLOL) OS SCH ×3 (08:27→09:00)
[2022-11-29] MEDS ORDERED: PIPERACILLIN/TAZOBACTAM SOD 4.5 GM in D5W MINI-BAG PLUS 50 ML IV SCH (09:00)
[2022-11-29] MEDS ORDERED: AMPICILLIN 2GM VIAL IV SCH (12:00)
[2022-11-29 15:38] VITALS: BP 114/58; TEMP 97.7; O2SAT 96
[2022-11-29] MEDS ORDERED: AMPICILLIN SOD 2 GM in D5W MINI-BAG PLUS 100 ML IV SCH (17:00)
[2022-11-29] MEDS ORDERED: diphenhydrAMINE 50MG/ML VIAL As Ordered ONE (17:37)
[2022-11-29] MEDS ORDERED: methylPREDNISolone 125MG 2ML VIAL As Ordered ONE ×2 (17:38→17:44)
[2022-11-29] MEDS ORDERED: SODIUM BICARBONATE 8.4% INJ 50ML SYRINGE ONE (17:54)
[2022-11-29] MEDS ORDERED: SODIUM BICARBONATE 4.2% INJ 10ML SYRINGE ONE (17:54)
[2022-11-29] MEDS ORDERED: EPINEPHrine 1MG/10ML SYRINGE 1.5IN ONE (17:54)
[2022-11-29 20:07] VITALS: BP 125/71; O2SAT 91
[2022-11-29] MEDS ORDERED: APIXABAN 5 MG TAB (ELIQUIS) PO SCH (21:00)
== END 2022-11-29 17:55 | disposition expired | DRG 314 ==
LOC: M ED 17:01 → M ED INP 23:41 → M MSPAV 11-27 02:39 → OBSVTOIN 11-29 12:41
PROVIDERS: ADMIT Internal Medicine; ATTEND Student in an Organized Health Care Education/Training Program
PROC: 0BH17EZ Insertion of Endotracheal Airway into Trachea, Via Natural or Artificial Opening (ICD-10-PCS; principal; 2022-11-29)
PROC: B246ZZZ Ultrasonography of Right and Left Heart (ICD-10-PCS; 2022-11-29)
DX: T82.7XXA Infection and inflammatory reaction due to other cardiac and vascular devices, implants and grafts, initial encounter (principal); L89.224 Pressure ulcer of left hip, stage 4; R78.81 Bacteremia; T78.2XXA Anaphylactic shock, unspecified, initial encounter; I48.91 Unspecified atrial fibrillation; I46.9 Cardiac arrest, cause unspecified; I10 Essential (primary) hypertension; E78.5 Hyperlipidemia, unspecified; J44.9 Chronic obstructive pulmonary disease, unspecified; E11.9 Type 2 diabetes mellitus without complications; N40.0 Benign prostatic hyperplasia without lower urinary tract symptoms; F41.9 Anxiety disorder, unspecified; F32.A Depression, unspecified; Z79.01 Long term (current) use of anticoagulants; Z79.84 Long term (current) use of oral hypoglycemic drugs; Z79.899 Other long term (current) drug therapy; Z99.81 Dependence on supplemental oxygen; F17.218 Nicotine dependence, cigarettes, with other nicotine-induced disorders; K27.9 Peptic ulcer, site unspecified, unspecified as acute or chronic, without hemorrhage or perforation; H40.9 Unspecified glaucoma; Y83.1 Surgical operation with implant of artificial internal device as the cause of abnormal reaction of the patient, or of later complication, without mention of misadventure at the time of the procedure; T36.0X5A Adverse effect of penicillins, initial encounter